=== PATIENT | male | born 1945 | race Caucasian/White ===

== ENCOUNTER → 2018-03-20 11:24 | Outpatient (CLI) | payer SELFPAY ==
--- NOTE | 2018-03-20 11:33 | US_ITS ---
STUDY: SCROTUM ULTRASOUND REASON FOR EXAM: Male, 72 years old. Pain/tenderness of the left testicle. TECHNIQUE: Ultrasound evaluation of the scrotum was performed with color Doppler and static erickson-scale imaging. COMPARISON: None. FINDINGS: RIGHT TESTICLE INTRATESTICULAR: There is a normal size of the right testicle. The right testicle measures 4 cm x 3.7 cm x 2.9 cm. There is a homogenous echotexture. There is normal arterial and normal venous vascularity. There is no demonstrated right testicular mass or cyst. EXTRATESTICULAR: The epididymis is normal in size. The epididymis head measures 0.9 cm x 2 cm x 1.3 cm. There is normal vascularity of the epididymis. There is a well-defined cystic structure within the epididymis, without internal echoes, consistent with an epididymal cyst. This measures 3.9 mm x 5.6 mm. There is no demonstrated hydrocele. There is no demonstrated varicocele. There is no demonstrated extratesticular mass or cyst. LEFT TESTICLE INTRATESTICULAR: There is a normal size of the left testicle. The left testicle measures 4.1 cm x 3.2 signed by 3.1 cm. There is a homogenous echotexture. There is normal arterial and normal venous vascularity. There is no demonstrated left testicular mass or cyst. EXTRATESTICULAR: The epididymis is normal in size. The epididymis head measures 1.2 cm x 1.3 cm x 0.9 cm. There is increased (hyperemic) vascularity of the epididymis. There is no demonstrated epididymal cystic structure. There is a small hydrocele. There is no demonstrated varicocele. There is no demonstrated extratesticular mass or cyst. US/Testicular with Arterial Flow IMPRESSION: Findings suggestive of left epididymitis. Small hydrocele. Electronically Signed: Riaz Dean MD at 14:56 EDT Tel [phone], Service support ,
== END ==
PROVIDERS: Family Provider Family Medicine; PCP Family Medicine; Referring Provider Nurse Practitioner Adult Health; Visit Provider Nurse Practitioner Adult Health
DX: N43.3 Hydrocele, unspecified (principal)
CPT/HCPCS: 76870; 87086; 87088; 87186; 93976

== ENCOUNTER → 2018-05-07 09:12 | Outpatient (CLI) | payer SELFPAY ==
--- NOTE | 2018-05-07 09:16 | CT_ITS ---
STUDY: CT ABDOMEN AND PELVIS WITHOUT CONTRAST REASON FOR EXAM: Male, 72 years old. 2 week history of left flank pain. RADIATION DOSAGE (If Supplied By Facility): CTDIvol = ( 23.43 ) mGy, DLP = ( 1264.55 ) mGycm TECHNIQUE: Transaxial images were obtained from the dome of the diaphragm to the symphysis pubis without oral contrast, and without intravenous contrast. Sagittal and coronal images were reconstructed. Individualized dose optimization techniques were used for this CT. COMPARISON: None. FINDINGS: Increased linear markings at the right lung base with areas of confluence suggestive of scarring and possible superimposed atelectasis. Calcified granulomas in both lower lobes more prominent on the right side. Dual-chamber pacemaker is seen. Normal liver. There are surgical clips in the gallbladder fossa consistent with a prior cholecystectomy. There are multiple benign calcified granulomata of the spleen. Normal pancreas. Normal bilateral adrenal glands. There is a 1.7 cm x 1.7 cm rounded hypodensity along the lateral posterior aspect of the right kidney suggestive of a small cyst. Normal left kidney. Normal visualized stomach. Normal small intestine. Normal colon. The appendix is visualized and appears normal. There is scattered atherosclerotic calcification of the abdominal aorta, without a demonstrated aneurysm. Normal inferior vena cava. There is borderline retroperitoneal lymphadenopathy with enlarged nodes no greater than 10mm in the short axis diameter. Bladder wall thickening along the anterior superior aspect. There is enlargement of the prostate gland. It measures 5.9 cm x 4.9 cm. This causes indentation at the bladder base. Benign appearing bilateral inguinal lymph nodes. Normal abdominal wall. There are diffuse degenerative changes of the visualized lumbar spine. Prior screw and mo fixation at the L4 S1 level. Grade 2 anterior listhesis of L5 on S1. CT/Abdomen/Pelvis without Cont IMPRESSION: Prostate enlargement with indentation of the bladder base. Bladder wall thickening along the superior anterior aspect. Electronically Signed: Riaz eDan MD at 9:57 EST Tel [phone], Service support ,
== END ==
PROVIDERS: Family Provider Family Medicine; PCP Family Medicine; Visit Provider Urology
DX: N20.0 Calculus of kidney (principal); N40.0 Benign prostatic hyperplasia without lower urinary tract symptoms
CPT/HCPCS: 74176

== ENCOUNTER 2018-06-05 15:32 | Inpatient (IN) | payer OTHER, SELFPAY ==
[2018-06-05] VITALS (11 sets, daily range): BP systolic 116–126; BP diastolic 69–82; PULSE 70–72; RESP 16–18; TEMP 36.7–36.9; O2SAT 92–98; BMI 36.6
--- NOTE | 2018-06-05 15:47 | EKG12_ITS ---
Test Reason : SOB Blood Pressure : / mmHG Vent. Rate : 070 BPM Atrial Rate : 468 BPM P-R Int : 226 ms QRS Dur : 198 ms QT Int : 492 ms P-R-T Axes : 000 -66 101 degrees QTc Int : 531 ms AV dual-paced rhythm with prolonged AV conduction Abnormal ECG Confirmed by WEST PLASCENCIA, NORMAN ([id number]), associate entertainment editor DORIAN HENDRICKSON ([id number]) on 06/11/2018 9:48:57 AM Referred By: ARCHIE Confirmed By:NORMAN DODSON MD
--- NOTE | 2018-06-05 15:47 | RAD_ITS ---
STUDY: X-RAY CHEST REASON FOR EXAM: Male, 72 years old. Shortness of breath TECHNIQUE: Frontal and lateral views of the chest were obtained. COMPARISON: None. FINDINGS: Lines and tubes: None. Lungs: Underaerated with increased AP diameter on the lateral view. Minimal increased markings in both lung bases. Pleura: No demonstrated abnormality. Mediastinum/nikki: Unremarkable. Cardiovascular: Mildly enlarged cardiac silhouette. A pacing device is present in the left chest with leads terminating in the expected right atrium and right ventricle. Central vascularity unremarkable. Atherosclerotic calcifications in the thoracic aorta. Soft tissues: Unremarkable. Bones: Degenerative changes in spine and shoulders. Upper abdomen: No demonstrated abnormality. RAD/Chest PA and Lateral IMPRESSION: There is mild enlargement of the cardiac silhouette without pulmonary edema or pleural effusion. Minimal bibasilar atelectasis. Electronically Signed: Linda Schroeder MD at 17:20 EST Tel Direct: [phone], Service support ,
--- NOTE | 2018-06-05 16:36 | ED.VISSUMM ---
- ER Visit Summary Date of Service: 06/05/18 Chief Complaint: [Shortness of breath] History of Present Illness: The patient is a 72 M presents to the emergency department with 2-day history of increased shortness of breath. Patient was seen by his urologist today for an unrelated issue and was noted to be quite dyspneic so sent to the emergency department for further evaluation. Patient has had a slight cough but no real fever. He denies any chest pain. Patient has noticed some increased leg swelling. Patient not sure if he is gained weight but he does not weigh himself. Patient complains of orthopnea and exertional dyspnea. He denies recent travel or surgery. Patient does have a history of hypertension and CHF. [] Physical Examination: [HEENT-PERRLA, EOMI. Cranial nerves II through XII grossly intact. TMs clear. Mucous membranes moist. No adenopathy. Cardiovascular-regular rate and rhythm without murmur or ectopy Lungs-good aeration bilaterally. Patient has rales in both bases. No accessory muscle use or retractions. Patient is noted to have some mild JVD. Abdomen-normoactive bowel sounds, soft, nontender, no rebound or rigidity, no peritoneal signs. Extremities-intact ?4, normal range of motion, normal pulses, atraumatic. Patient has +1 edema both lower extremities.] Test Results: [EKG obtained on arrival showed a paced rhythm with a ventricular rate of 70 bpm. CBC with differential showed a white count of 7.1, hemoglobin 12.9, hematocrit 42, platelets 169. Chemistries unremarkable. BUN was 25 and creatinine 1.35. Troponin was elevated 0.144. No old troponins available for comparison. D-dimer was 0.52 which is normal when adjusted for age. Chest x-ray showed cardiomegaly otherwise nothing acute.] Emergency Department Course and Treatment: [Admit for further workup and evaluation. Patient was given aspirin.] Treatment Plan: [Admit] Disposition: [Admit] Impression: [Dyspnea Non-ST elevation NM] This note was generated with [employer] dictation software. It may contain incorrect words, spelling, and punctuation that were not noted in review of the chart prior to signing ED Disposition - Plan for ED Patient: Chief Complaint: Shortness of Breath Referrals: Ayo Burns [Primary Care Provider] -
[2018-06-05 16:42] LABS: Absolute Neutrophil Count 4.3 X10^3/uL (2.0-7.7); Basophil# 0.02 X10^3/uL; Basophil% 0.3 % (0-1); Eosinophil# 0.17 X10^3/uL; Eosinophils% 2.4 % (0-5); Hematocrit 41.9 % (40-54); Hemoglobin 12.9 g/dl (13.0-16.5); Lymphocyte % 24.1 % (19-41); Mean Corp Hgb Conc 30.8 g/gl (32-36); Mean Corpuscular Hgb 26.8 pg (27.0-32.0); Mean Corpuscular Volume 87.1 fL (80-94); Mean Platelet Vol. 10.8 fl (6.2-12.0); Monocyte# 0.85 X10^3/uL; Monocyte% 12.1 % (0-10); Neutrophil # 4.29 X10^3/uL (2.7-7.7); Neutrophil % 60.8 % (47-70); Platelet Count 169 K/mm3 (150-450); RBC Distribution Width CV 18.5 % (11.6-14.6); RBC Distribution Width SD 59.4 fl (35.1-43.9); Red Blood Count 4.81 M/mm3 (4.6-6.2); White Blood Count 7.1 K/mm3 (4.4-11.0)
[2018-06-05 16:44] LABS: POSITIVE COUNT NO; POSITIVE DIFFERENTIAL NO; POSITIVE MORPHOLOGY NO
[2018-06-05 16:59] LABS: Anion Gap 7 (5-15); BUN 25 mg/dL (7-18); BUN/Creat Ratio 18.5 RATIO (10-20); Calcium,Total 8.8 mg/dL (8.5-10.1); Chloride 103 mmol/L (98-107); Creatinine, Serum 1.35 mg/dL (0.70-1.30); EST Glomerular Filtration Rate 55 mL/min (>60); Est Glom Filt Rate - Afr Amer 67 mL/min (>60); Estimated Creatinine Clearance 55.88 ml/min; Glucose 96 mg/dL (74-106); Potassium 4.2 mmol/L (3.5-5.1); Sodium Level 139 mmol/L (136-145)
[2018-06-05 17:04] LABS: D-Dimer Quantitative (DVT/PE) 0.52 FEU/ug/m (0.27-0.49)
[2018-06-05 17:12] LABS: BNP,B-Type NATRIURETIC PEPTIDE 256.2 pg/mL (0-100)
[2018-06-05] MEDS: Aspirin 81 MG TAB.CHEW 324 MG PO (18:02)
--- NOTE | 2018-06-05 19:12 | PCM.HP.STD ---
Problem List (1) Chest pain Status: Acute (2) Elevated troponin Status: Acute History of Present Illness Date of Admission: 06/05/18 Chief Complaint: chest pain. The patient is a 72 year old M presents with increasing shortness of breath over the past several days but also has been having chest pain. Patient presented to the emergency room for evaluation. In the emergency room, he had a d-dimer that was 0.52, which is normal for his age, a BNP of 256, troponin of 0.144. Patient denies having symptoms similar to this before denies any history of coronary artery disease. Does have a history of atrial fibrillation which he has a pacemaker. He was following up with a milk pasteurizer in [place] but who moved away and patient did not get reestablished though he did see a milk pasteurizer over the summer for what sounds like clearance for his back surgery. Patient did undergo an extensive lumbar and sacral fusion in December which she tolerated well. Patient's big complaint is also involved back pain, which is been going on for several months since his surgery and denies any new radicular symptoms nor any bowel or bladder incontinence. Also complains of groin pain. This been going on for several months and was diagnosed with epididymitis in February and has seen Dr. Tomlinson, of urology. This too is unchanged. [] Past Medical History Medical History: Medical History (Last Updated 06/05/18 @ 19:16 by Krishna Mckenna DO) Afib I48.91 BPH (benign prostatic hyperplasia) N40.0 Fusion of lumbar spine M43.26 Allergies No Known Allergies Allergy (Verified 06/05/18 15:34) Home Medications: Ambulatory Orders Medication Instructions Recorded Acetaminophen [Tylenol] 650 mg PO Q4H PRN PRN 06/05/18 Amiodarone HCl 400 mg PO DAILY 06/05/18 Aspirin E.C. [Ecotrin] 81 mg PO DAILY@0800 06/05/18 Atorvastatin Calcium [Lipitor] 10 mg PO QHS 06/05/18 Co Q10 200 [Co Q-10] 100 mg PO BID 06/05/18 Digoxin 125 mcg PO DAILY 06/05/18 Furosemide [Lasix] 20 mg PO DAILY 06/05/18 Metoprolol Tartrate 50 mg PO BID 06/05/18 [place]-3 Fatty Acids [[place]-3] 1,000 mg PO BID 06/05/18 Pantoprazole Sodium [Protonix] 40 mg PO BID 06/05/18 Spironolactone 12.5 mg PO DAILY 06/05/18 Tamsulosin HCl 0.4 mg PO DAILY 06/05/18 Warfarin Sodium 2 mg PO MOTUFRSA 06/05/18 Smoking Status: Former smoker Tobacco Use: Non-smoker Alcohol: None Drugs: None - *Family History Maternal History Items: - - no CAD Review of Systems Constitutional: Denies: Anorexia, Chills, Fever, Night Sweats Eyes: Denies: Blurred vision, Double vision HEENT: Denies: Head Aches, Sinus Congestion, Sinus Drainage Cardiovascular: Reports: Chest Pain. Denies: Edema Respiratory: Reports: Shortness of Breath. Denies: Cough Gastrointestinal: Denies: Abdominal Pain, Nausea, Vomiting Genitourinary: Denies: Dysuria, Frequency, Incontinence Musculoskeletal: Denies: Joint Pain, Joint Tenderness Skin: Denies: Dryness, Jaundice Neurological: Denies: Blurred vision, Double vision, Focal weakness, Numbness, Tingling Psychiatric: Denies: Anxiety, Depression Endocrine: Denies: Change in Body Habitus, Heat/ Cold Intolerance Hematologic/ Lymphatic: Denies: Easy Bruising, Easy Bleeding, Hx of blood clot Comment: A 10 point review of systems were negative except as mentioned in the history of present illness and the other review of systems. VTE Information - Inpt Only VTE Present on Admission: No VTE Mechan Device Prophylaxis: None VTE Pharm Prophylaxis ordered?: Yes Patient Problems: Active and Suspected Problems Chest pain (Acute) Elevated troponin (Acute) - Physical Exam General: Alert, Cooperative, No apparent distress HEENT: Atraumatic, Normocephalic Oral: Moist Mucosa, No Gingival or Mucosal Lesions/ Ulcerations Neck: No Nodes, Thyroid Normal Size and Texture Lungs: Clear to auscultation, No rhonchi, No wheeze, Diminished Cardiovascular: Regular rate, Regular Rhythm, Normal S1, Normal S2, No murmurs Abdomen: Bowel Sounds Present, Non Tender, Non-Distended, No Hepato-splenomegaly, Passing Flatus, Obese Extremities: No edema, No Calf Tenderness Skin: No rashes, No breakdown Musculoskeletal: No Tenderness to Palpation of Joints or Extremities, No Muscle Wasting Neurological: Motor Exam 5/5 strength throughout, Sensory exam intact to light touch and pain Psych/Mental Status: Normal Affect, Anxious Vital Signs Temp Pulse Resp BP Pulse Ox 36.9 C 70 16 123/76 H 98 06/05/18 17:12 06/05/18 18:05 06/05/18 18:05 06/05/18 18:05 06/05/18 18:05 Oxygen Flow Rate (L/min) 2 Oxygen Delivery Method Nasal Cannula Weight: 122.4 kg Body Mass Index (BMI) 36.6 Laboratory Tests Past 24 Hrs 06/05/18 06/05/18 06/05/18 16:27 16:27 16:27 WBC 7.1 RBC 4.81 Hgb 12.9 L Hct 41.9 MCV 87.1 MCH 26.8 L MCHC 30.8 L RDW 18.5 H RDW Differential 59.4 H Plt Count 169 MPV 10.8 Immature Gran % (Auto) 0.300 Neut % (Auto) 60.8 Lymph % (Auto) 24.1 [place] % (Auto) 12.1 H Eos % (Auto) 2.4 Baso % (Auto) 0.3 Absolute Neuts (auto) 4.3 Absolute Lymphs (auto) 1.70 Total Counted Not Reportable D-Dimer Quant (PE/DVT) Sodium 139 Potassium 4.2 Chloride 103 Carbon Dioxide 29.0 Anion Gap 7 BUN 25 H Creatinine 1.35 H Estim Creat Clear Calc 55.88 Est GFR (MDRD) Af Amer 67 Est GFR (MDRD) Non-Af 55 L BUN/Creatinine Ratio 18.5 Glucose 96 Calcium 8.8 Troponin I 0.144 H B-Natriuretic Peptide 256.2 H 06/05/18 16:27 WBC RBC Hgb Hct MCV MCH MCHC RDW RDW Differential Plt Count MPV Immature Gran % (Auto) Neut % (Auto) Lymph % (Auto) [place] % (Auto) Eos % (Auto) Baso % (Auto) Absolute Neuts (auto) Absolute Lymphs (auto) Total Counted D-Dimer Quant (PE/DVT) 0.52 H* Sodium Potassium Chloride Carbon Dioxide Anion Gap BUN Creatinine Estim Creat Clear Calc Est GFR (MDRD) Af Amer Est GFR (MDRD) Non-Af BUN/Creatinine Ratio Glucose Calcium Troponin I B-Natriuretic Peptide EKG reviewed and showed a paced rhythm. Chest x-ray reviewed and shows no acute process, cardiomegaly. No definitive pulmonary edema nor effusions. No infiltrate. Assessment/Plan All Active Problems Chest pain (Acute) Elevated troponin (Acute) 1. Chest pain We will cycle troponins Consult cardiology Check an echocardiogram Patient already on aspirin Check a a.m. lipid panel 2. Elevated troponin As above We will check an INR to see if patient is adequately anticoagulated, if not, patient may need benefit from therapeutic Lovenox. 3. Atrial fibrillation Paced and controlled Continue with amiodarone, digoxin, metoprolol and warfarin. Check records from his former milk pasteurizer in [place]'s office 4. DVT prophylaxis: Patient will be anticoagulated, either with therapeutic INR with the addition of therapeutic Lovenox. 5. Left groin pain Chronic Has been evaluated by urology Was diagnosed with epididymitis in February and was treated with antibiotics on several occasions We will check a urinalysis to see if any urinary tract infection is evident Patient and his family instructed that he will need follow-up with urology as outpatient as this is a chronic problem there is no acute need to bring in urology at this time. 6. back pain Chronic Is been going on since his surgery back in December He has no radicular signs, no bowel or bladder incontinence Patient will need to follow-up with his spine surgeon, Dr. Duran, as outpatient The patient does develop acute radicular symptoms or any bowel or bladder incontinence, then acute imaging would be necessary Did discuss with the patient's and another family member at bedside. seemed upset by the fact that would not be consulting urology while he was here and I did inform them that we do not have spine surgery available here and I did inform them that there is no need for imaging of his back at this time. Informed she her as well as the patient that the primary reason for him to be admitted is to evaluate his heart. Code Visit Inpatient E&M: 58383 Init Hosp L3
--- NOTE | 2018-06-05 19:17 | HP.PCM_ITS ---
Problem List (1) Chest pain Status: Acute (2) Elevated troponin Status: Acute History of Present Illness Date of Admission: 06/05/18 Chief Complaint: chest pain. The patient is a 72 year old M presents with increasing shortness of breath over the past several days but also has been having chest pain. Patient presented to the emergency room for evaluation. In the emergency room, he had a d-dimer that was 0.52, which is normal for his age, a BNP of 256, troponin of 0.144. Patient denies having symptoms similar to this before denies any history of coronary artery disease. Does have a history of atrial fibrillation which he has a pacemaker. He was following up with a forest fire prevention manager in [place] but who moved away and patient did not get reestablished though he did see a forest fire prevention manager over the summer for what sounds like clearance for his back surgery. Patient did undergo an extensive lumbar and sacral fusion in December which she tolerated well. Patient's big complaint is also involved back pain, which is been going on for several months since his surgery and denies any new radicular symptoms nor any bowel or bladder incontinence. Also complains of groin pain. This been going on for several months and was diagnosed with epididymitis in February and has seen Dr. Tomlinson, of urology. This too is unchanged. [] Past Medical History Medical History: Medical History (Last Updated 06/05/18 @ 19:16 by Krishna Mckenna DO) Afib I48.91 BPH (benign prostatic hyperplasia) N40.0 Fusion of lumbar spine M43.26 Allergies No Known Allergies Allergy (Verified 06/05/18 15:34) Home Medications: Ambulatory Orders Medication Instructions Recorded Acetaminophen [Tylenol] 650 mg PO Q4H PRN PRN 06/05/18 Amiodarone HCl 400 mg PO DAILY 06/05/18 Aspirin E.C. [Ecotrin] 81 mg PO DAILY@0800 06/05/18 Atorvastatin Calcium [Lipitor] 10 mg PO QHS 06/05/18 Co Q10 200 [Co Q-10] 100 mg PO BID 06/05/18 Digoxin 125 mcg PO DAILY 06/05/18 Furosemide [Lasix] 20 mg PO DAILY 06/05/18 Metoprolol Tartrate 50 mg PO BID 06/05/18 [place]-3 Fatty Acids [[place]-3] 1,000 mg PO BID 06/05/18 Pantoprazole Sodium [Protonix] 40 mg PO BID 06/05/18 Spironolactone 12.5 mg PO DAILY 06/05/18 Tamsulosin HCl 0.4 mg PO DAILY 06/05/18 Warfarin Sodium 2 mg PO MOTUFRSA 06/05/18 Smoking Status: Former smoker Tobacco Use: Non-smoker Alcohol: None Drugs: None - *Family History Maternal History Items: - - no CAD Review of Systems Constitutional: Denies: Anorexia, Chills, Fever, Night Sweats Eyes: Denies: Blurred vision, Double vision HEENT: Denies: Head Aches, Sinus Congestion, Sinus Drainage Cardiovascular: Reports: Chest Pain. Denies: Edema Respiratory: Reports: Shortness of Breath. Denies: Cough Gastrointestinal: Denies: Abdominal Pain, Nausea, Vomiting Genitourinary: Denies: Dysuria, Frequency, Incontinence Musculoskeletal: Denies: Joint Pain, Joint Tenderness Skin: Denies: Dryness, Jaundice Neurological: Denies: Blurred vision, Double vision, Focal weakness, Numbness, Tingling Psychiatric: Denies: Anxiety, Depression Endocrine: Denies: Change in Body Habitus, Heat/ Cold Intolerance Hematologic/ Lymphatic: Denies: Easy Bruising, Easy Bleeding, Hx of blood clot Comment: A 10 point review of systems were negative except as mentioned in the history of present illness and the other review of systems. VTE Information - Inpt Only VTE Present on Admission: No VTE Mechan Device Prophylaxis: None VTE Pharm Prophylaxis ordered?: Yes Patient Problems: Active and Suspected Problems Chest pain (Acute) Elevated troponin (Acute) - Physical Exam General: Alert, Cooperative, No apparent distress HEENT: Atraumatic, Normocephalic Oral: Moist Mucosa, No Gingival or Mucosal Lesions/ Ulcerations Neck: No Nodes, Thyroid Normal Size and Texture Lungs: Clear to auscultation, No rhonchi, No wheeze, Diminished Cardiovascular: Regular rate, Regular Rhythm, Normal S1, Normal S2, No murmurs Abdomen: Bowel Sounds Present, Non Tender, Non-Distended, No Hepato- splenomegaly, Passing Flatus, Obese Extremities: No edema, No Calf Tenderness Skin: No rashes, No breakdown Musculoskeletal: No Tenderness to Palpation of Joints or Extremities, No Muscle Wasting Neurological: Motor Exam 5/5 strength throughout, Sensory exam intact to light touch and pain Psych/Mental Status: Normal Affect, Anxious Vital Signs Temp Pulse Resp BP Pulse Ox 36.9 C 70 16 123/76 H 98 06/05/18 17:12 06/05/18 18:05 06/05/18 18:05 06/05/18 18:05 06/05/18 18:05 Oxygen Flow Rate (L/min) 2 Oxygen Delivery Method Nasal Cannula Weight: 122.4 kg Body Mass Index (BMI) 36.6 Laboratory Tests Past 24 Hrs 06/05/18 06/05/18 06/05/18 16:27 16:27 16:27 WBC 7.1 RBC 4.81 Hgb 12.9 L Hct 41.9 MCV 87.1 MCH 26.8 L MCHC 30.8 L RDW 18.5 H RDW Differential 59.4 H Plt Count 169 MPV 10.8 Immature Gran % (Auto) 0.300 Neut % (Auto) 60.8 Lymph % (Auto) 24.1 [place] % (Auto) 12.1 H Eos % (Auto) 2.4 Baso % (Auto) 0.3 Absolute Neuts (auto) 4.3 Absolute Lymphs (auto) 1.70 Total Counted Not Reportable D-Dimer Quant (PE/DVT) Sodium 139 Potassium 4.2 Chloride 103 Carbon Dioxide 29.0 Anion Gap 7 BUN 25 H Creatinine 1.35 H Estim Creat Clear Calc 55.88 Est GFR (MDRD) Af Amer 67 Est GFR (MDRD) Non-Af 55 L BUN/Creatinine Ratio 18.5 Glucose 96 Calcium 8.8 Troponin I 0.144 H B-Natriuretic Peptide 256.2 H 06/05/18 16:27 WBC RBC Hgb Hct MCV MCH MCHC RDW RDW Differential Plt Count MPV Immature Gran % (Auto) Neut % (Auto) Lymph % (Auto) [place] % (Auto) Eos % (Auto) Baso % (Auto) Absolute Neuts (auto) Absolute Lymphs (auto) Total Counted D-Dimer Quant (PE/DVT) 0.52 H* Sodium Potassium Chloride Carbon Dioxide Anion Gap BUN Creatinine Estim Creat Clear Calc Est GFR (MDRD) Af Amer Est GFR (MDRD) Non-Af BUN/Creatinine Ratio Glucose Calcium Troponin I B-Natriuretic Peptide EKG reviewed and showed a paced rhythm. Chest x-ray reviewed and shows no acute process, cardiomegaly. No definitive pulmonary edema nor effusions. No infiltrate. Assessment/Plan All Active Problems Chest pain (Acute) Elevated troponin (Acute) 1. Chest pain We will cycle troponins Consult cardiology Check an echocardiogram Patient already on aspirin Check a a.m. lipid panel 2. Elevated troponin As above We will check an INR to see if patient is adequately anticoagulated, if not, patient may need benefit from therapeutic Lovenox. 3. Atrial fibrillation Paced and controlled Continue with amiodarone, digoxin, metoprolol and warfarin. Check records from his former forest fire prevention manager in [place]'s office 4. DVT prophylaxis: Patient will be anticoagulated, either with therapeutic INR with the addition of therapeutic Lovenox. 5. Left groin pain Chronic Has been evaluated by urology Was diagnosed with epididymitis in February and was treated with antibiotics on several occasions We will check a urinalysis to see if any urinary tract infection is evident Patient and his family instructed that he will need follow-up with urology as outpatient as this is a chronic problem there is no acute need to bring in urology at this time. 6. back pain Chronic Is been going on since his surgery back in December He has no radicular signs, no bowel or bladder incontinence Patient will need to follow-up with his spine surgeon, Dr. Duran, as outpatient The patient does develop acute radicular symptoms or any bowel or bladder incontinence, then acute imaging would be necessary Did discuss with the patient's and another family member at bedside. seemed upset by the fact that would not be consulting urology while he was here and I did inform them that we do not have spine surgery available here and I did inform them that there is no need for imaging of his back at this time. Informed she her as well as the patient that the primary reason for him to be admitted is to evaluate his heart. Code Visit Inpatient E&M: 59978 Init Hosp L3
--- NOTE | 2018-06-05 19:21 | ECHOD_ITS ---
Reason For Study: CHEST PAIN Procedure This was a 2D Doppler, Color Flow transthoracic echocardiogram. The study was technically difficult. Due to body habitus. Exam performed portable in patient room. Left Ventricle Moderately dilated left ventricle. Sigmoid septum. Moderate global left ventricular systolic dysfunction. The estimated ejection fraction is 35 %. Right Ventricle Mildly dilated right ventricle. ICD or pacer leads identified within the right ventricle. Mild global right ventricular systolic dysfunction. Atria The left atrium is moderately enlarged. Normal right atrium. ICD or pacer leads identified within the right atrium. No doppler evidence for ASD. Mitral Valve There is mild mitral annular calcification. Mild diffuse mitral valve thickening. The mitral valve chordae are thickened and/or calcified. Mild-Moderate (1-2+) mitral valve insufficiency. Tricuspid Valve Normal tricuspid valve. Mild tricuspid valve insufficiency. Right ventricular systolic pressure estimated to be 31 mmHg. Aortic Valve Trisinus/trileaflet aortic valve. Mild focal aortic valve thickening. Trivial eccentric aortic valve insufficiency. Pulmonic Valve The pulmonic valve is not well visualized. Great Vessels Normal sized aortic root. Pericardium/Pleural No pericardial effusion. MMode/2D Measurements & Calculations LVIDd: 6.4 cm IVSd: 1.9 cm Ao root diam: 3.6 cm LVIDs: 5.6 cm LVPWd: 1.2 cm RVDd: 4.4 cm FS: 12.4 % LAV(MOD-bp): 116.2 ml LA A4 area: 27.7 cm2 LA dimension(2D): 4.9 cm LAV(MOD-bp) Indexed: 48.1 ml/m2 LAV(MOD-sp2): 114.1 ml LAV(MOD-sp4): 119.7 ml RA A4 area: 17.8 cm2 Doppler Measurements & Calculations MV E max nick: 72.4 cm/sec Lat Peak E' Nick: 1.8 cm/sec Med Peak E' Nick: 4.0 cm/sec MV A max nick: 38.8 cm/sec E/E' lat: 40.0 E/E' med: 17.9 MV E/A: 1.9 Ao V2 max: 113.8 cm/sec LV V1 max: 83.6 cm/sec MR max nick: 369.5 cm/sec Ao max P.2 mmHg LV V1 max P.8 mmHg MR max P.6 mmHg PA V2 max: 91.9 cm/sec TR max nick: 236.9 cm/sec TR max P.5 mmHg Interpretation Summary The study was technically difficult. Moderately dilated left ventricle. Moderate global left ventricular systolic dysfunction. The estimated ejection fraction is 35 %. Sigmoid septum. Mildly dilated right ventricle. Mild global right ventricular systolic dysfunction. The left atrium is moderately enlarged. There is mild mitral annular calcification. Mild diffuse mitral valve thickening. The mitral valve chordae are thickened and/or calcified. Mild-Moderate (1-2+) mitral valve insufficiency. Mild tricuspid valve insufficiency. Mild focal aortic valve thickening. Trivial eccentric aortic valve insufficiency. Right ventricular systolic pressure estimated to be 31 mmHg. Transmitral diastolic flow velocities suggest diastolic dysfunction (pseudonormal pattern). ICD or pacer leads identified within the right atrium ICD or pacer leads identified within the right ventricle. Ordering Physician: Krishna Mckenna Referring Physician: Ayo Burns Performed By: Tatum Perdomo RDCS, RVT
[2018-06-05] MEDS: Metoprolol Tartrate 50 MG Tablet PO (21:14)
[2018-06-05] MEDS: Omega-3 Acid Ethyl Esters 1 GM Capsule PO (21:14)
[2018-06-05] MEDS: Atorvastatin Calcium 10 MG Tablet PO (21:14)
[2018-06-05] MEDS: Acetaminophen 325 MG Tablet 650 MG PO (21:14)
[2018-06-05] MEDS: Pantoprazole Sodium 40 MG Tablet PO (21:14)
--- NOTE | 2018-06-05 21:44 | CON.PCM_ITS ---
Problem List (1) Chest pain Status: Acute (2) Shortness of breath Status: Acute (3) Elevated troponin Status: Acute (4) Cardiomyopathy Status: Chronic (5) CHF (congestive heart failure) Status: Chronic Qualifiers: Heart failure type: systolic Heart failure chronicity: chronic Qualified Code(s): I50.22 - Chronic systolic (congestive) heart failure (6) Atrial fibrillation Status: Chronic (7) ICD (implantable cardioverter-defibrillator) in place Status: Chronic (8) HTN (hypertension) Status: Chronic (9) HLD (hyperlipidemia) Status: Chronic Reason for Consult Date of Consultation: 06/05/18 History of Present Illness: The patient is a 72 year old white male who states he has a past medical history of underlying hyperlipidemia, hypertension, atrial fibrillation, a non-CAD related cardiomyopathy (diagnosed by cardiac catheterization x2), CHF, and an ICD who is referred for concerns of chest discomfort, shortness of breath, and indeterminate troponin I levels. The patient states he is previously followed with cardiology in [place], [place]. He has had his noninvasive and invasive studies/procedures performed at [facility] in [facility]. To the best of his knowledge he has been told he has the aforementioned diagnoses. He has been treated medically. He states his last outpatient cardiovascular visit was in November 2017 for preoperative evaluation. He did not require additional cardiovascular testing at that time. He states his ICD was reported as functioning appropriately. He has had it checked intermittently remotely. He notes recently he has had sharp chest discomfort and then a uncomfortable chest discomfort. He has felt more short of breath and dyspneic. He has had symptoms appearing compatible with orthopnea. He has long-standing lower extremity peripheral pitting edema for which she wears support stockings. He states this is been somewhat more prominent recently. He has had no near syncope or syncope. He states his device is discharged in the past but not within the last 2 years. He presented to the emergency department for evaluation. He was found to have indeterminate troponin I levels. His ECG demonstrated an underlying electronic ventricular paced rhythm. A chest x-ray was performed. There were no acute changes reported. He states he has increased his home diuretic therapy himself. He is actually felt better with increased diuresis. [] Past Medical History Allergies/Adverse Reactions: Allergies amoxicillin Allergy (Verified 06/05/18 19:21) Swelling tramadol Allergy (Verified 06/05/18 19:21) Swelling Home Medications: Ambulatory Orders Medication Instructions Recorded Acetaminophen [Tylenol] 650 mg PO Q4H PRN PRN 06/05/18 Amiodarone HCl 400 mg PO DAILY 06/05/18 Aspirin E.C. [Ecotrin] 81 mg PO DAILY@0800 06/05/18 Atorvastatin Calcium [Lipitor] 10 mg PO QHS 06/05/18 Co Q10 200 [Co Q-10] 100 mg PO BID 06/05/18 Digoxin 125 mcg PO DAILY 06/05/18 Furosemide [Lasix] 20 mg PO DAILY 06/05/18 Metoprolol Tartrate 50 mg PO BID 06/05/18 Dawson-3 Fatty Acids [Dawson-3] 1,000 mg PO BID 06/05/18 Pantoprazole Sodium [Protonix] 40 mg PO BID 06/05/18 Spironolactone 12.5 mg PO DAILY 06/05/18 Tamsulosin HCl 0.4 mg PO DAILY 06/05/18 Warfarin Sodium 2 mg PO MOTUFRSA 06/05/18 Past Medical History (Chronic Problems): Chronic Problems (Last Updated 06/05/18 @ 19:16 by Krishna Mckenna DO) Cardiomyopathy (Chronic) Atrial fibrillation (Chronic) ICD (implantable cardioverter-defibrillator) in place (Chronic) HTN (hypertension) (Chronic) HLD (hyperlipidemia) (Chronic) CHF (congestive heart failure) (Chronic) - *Family History Maternal History Items: - - no CAD Smoking Status: Former smoker Tobacco Use: Non-smoker Alcohol: None Drugs: None Review of Systems - Review of Systems General: Denies: Fever, Night Sweats, Fatigue Cardiovascular: Reports: Chest Discomfort, Shortness of Breath, Orthopnea, Peripheral Edema. Denies: PND, Palpitations, Lightheadedness, Dizziness, Near Syncope, Syncope Respiratory: Reports: Shortness of Breath. Denies: Cough, Sputum Production, Hemoptysis Gastrointestinal: Denies: Hematemesis, Hematochezia, Melena Genitourinary: Denies: Dysuria, Hematuria Skin: Denies: Rash Subjectve: This is a pleasant 72-year-old white male appears resting comfortably at the moment in no acute distress. Objective: Vital Signs Temp Pulse Resp BP Pulse Ox 98.1 F 70 16 117/69 98 06/05/18 21:10 06/05/18 21:14 06/05/18 21:10 06/05/18 21:10 06/05/18 21:10 Oxygen Flow Rate (L/min) 2 Oxygen Delivery Method Nasal Cannula Weight: 269 lb 13.533 oz Body Mass Index (BMI) 36.6 General: Awake, Alert, Oriented x 3, Cooperative, No Acute Distress, Obese HEENT: Atraumatic, Normocephalic, PERRL, EOMI, Sclera Non Icteric Oral: Moist Mucosa Neck: Supple, Good ROM, No JVD Lungs: Diminished Bernard Bases Cardiovascular: Regular Rhythm, Normal S1, Normal S2 Vascular: No Carotid Bruits Abdomen: Bowel Sounds Present, Soft, Non Tender, Obese Extremities: Mild RLE Edema, Mild LLE Edema, - - Bilateral support stockings Neurological: No Focal Motor or Sensory Deficit Psych/Mental Status: Appropriate 06/05/18 16:27: WBC 7.1, RBC 4.81, Hgb 12.9 L, Hct 41.9, MCV 87.1, MCH 26.8 L, MCHC 30.8 L, RDW 18.5 H, RDW Differential 59.4 H, Plt Count 169, MPV 10.8, Immature Gran % (Auto) 0.300, Neut % (Auto) 60.8, Lymph % (Auto) 24.1, [place] % (Auto) 12.1 H, Eos % (Auto) 2.4, Baso % (Auto) 0.3, Absolute Neuts (auto) 4.3, Total Counted Not Reportable 06/05/18 16:27: Sodium 139, Potassium 4.2, Chloride 103, Carbon Dioxide 29.0, Anion Gap 7, BUN 25 H, Creatinine 1.35 H, Est GFR (MDRD) Af Amer 67, Est GFR (MDRD) Non-Af 55 L, BUN/Creatinine Ratio 18.5, Glucose 96, Calcium 8.8, Troponin I 0.144 H 06/05/18 16:27: B-Natriuretic Peptide 256.2 H 06/05/18 16:27: D-Dimer Quant (PE/DVT) 0.52 H* 06/05/18 19:50: Troponin I 0.150 H Rhythm: Electronic ventricular paced rhythm EKG: I Tronic ventricular paced rhythm CXR: As noted above Assessment/Plan 1. Chest pain/shortness of breath The patient presents with chest pain and shortness of breath. His chest pain is somewhat atypical based on its characteristics. He has shortness of breath which is somewhat chronic but potentially worse recently. He is being evaluated based upon his symptoms and his previous cardiovascular condition. He has been found to have indeterminate troponin I levels. He has an underlying electronic ventricular paced rhythm. At the present time he is being monitored. His laboratory studies are being fol lowed. An echocardiogram has been requested to evaluate his left ventricular wall motion and systolic function. Request is also been placed for cardiovascular medical records from [facility] in [place], [place]. In the interim he will continue appropriate medical therapy for his symptoms and aforementioned condition. This will include medications for his underlying non-CAD related current myopathy as well as the possibility of underlying CAD. 2. Indeterminate troponin I level Is unclear whether this is representing the development of CAD, which he states he has not had the past, and an acute coronary syndrome versus being a type II event from supply demand mismatch from his underlying non-CAD related cardiomyopathy. At the present time he is going to be followed. As noted above his enzymes will be followed. An echocardiogram will be reviewed. He will be treated medically. This will include agents such as aspirin, nitrates, beta-blockers, antiplatelet and anticoagulant agents as deemed appropriate. He may need reevaluation either noninvasively or invasively as his clinical course progresses. 3. Non-CAD related cardiomyopathy The patient reportedly has a non-CAD related current myopathy. He states he is undergone diagnostic cardiac catheterization x2 in the past which have demonstrated no underlying CAD. At the present time he needs to continue to be monitored. An echocardiogram will be requested to review his left ventricular wall motion and systolic function. A copy of his previous medical records will be requested for continuity of care. He will need to continue medical management as deemed appropriate. This may include agents such as beta blockers, diuretics, afterload reducing agents, etc. 4. Chronic systolic CHF The patient appears to have a history compatible with chronic systolic CHF. He may be having an element of acute on chronic symptoms at this time. He will continue medical management. This will also include diuretic therapy with furosemide. He will proceed with further evaluation as noted above. 5. Atrial fibrillation The patient has a history of atrial fibrillation. He states he has been treated medically. He has been on it appears rate control therapy and anti-arrhythmic therapy and anticoagulant therapy. He notes his anticoagulant therapy has recently been adjusted after undergoing urologic procedures. He was due to have his INR rechecked tomorrow. If the patient requires repeat invasive evaluation and his anticoagulant therapy will have to be interrupted to allow his INR to be within acceptable range for such an evaluation. 6. ICD The patient believes he has a [employer] ICD. He states it was placed because of his weak heart . This can be interrogated which may provide additional information regarding his underlying cardiovascular status. 7. Hyperlipidemia He will continue lipid-lowering therapy as deemed appropriate. 8. Hypertension His blood pressure can be monitored. His medications can be adjusted as needed. Comment: The patient's case has been discussed and reviewed with the patient. He is agreeable to the aforementioned evaluation care plan. This note was generated with [employer] dictation software. It may contain incorrect words, spelling, and punctuation that were not noted in checking the note before signing.
--- NOTE | 2018-06-05 22:20 | EKG12_ITS ---
Test Reason : CHEST PAIN Blood Pressure : / mmHG Vent. Rate : 070 BPM Atrial Rate : 060 BPM P-R Int : 226 ms QRS Dur : 198 ms QT Int : 490 ms P-R-T Axes : 000 -63 097 degrees QTc Int : 529 ms AV dual-paced rhythm with prolonged AV conduction Biventricular pacemaker detected Abnormal ECG When compared with ECG of 05-JUN-2018 21:36, MANUAL COMPARISON REQUIRED, DATA IS UNCONFIRMED Confirmed by WEST PLASCENCIA, NORMAN ([id number]), film editor DORIAN HENDRICKSON ([id number]) on 06/11/2018 10:26:27 AM Referred By: STEFFANIE Confirmed By:NORMAN DODSON MD
[2018-06-05] MEDS: Furosemide 20 MG/2 ML VIAL IV (22:52)
[2018-06-06] VITALS (16 sets, daily range): BP systolic 99–126; BP diastolic 61–77; PULSE 66–71; RESP 16–20; TEMP 36.6–36.8; O2SAT 96–97
[2018-06-06 06:15] LABS: International Normalized Ratio 1.9; Prothrombin Time (Protime)PT. 21.6 SECONDS (11.7-14.9)
[2018-06-06 07:04] LABS: Anion Gap 8 (5-15); BUN 22 mg/dL (7-18); BUN/Creat Ratio 15.6 RATIO (10-20); Calcium,Total 8.4 mg/dL (8.5-10.1); Chloride 104 mmol/L (98-107); Cholesterol 102 mg/dL (200); Creatinine, Serum 1.41 mg/dL (0.70-1.30); EST Glomerular Filtration Rate 53 mL/min (>60); Est Glom Filt Rate - Afr Amer 64 mL/min (>60); Estimated Creatinine Clearance 53.51 ml/min; Glucose 87 mg/dL (74-106); High Density Lipoprotein 42 mg/dL; Potassium 4.1 mmol/L (3.5-5.1); Sodium Level 143 mmol/L (136-145); Triglycerides 93 mg/dL; Very Low Density Lipoprotein 19 mg/dL (5-40)
[2018-06-06 07:14] LABS: Digoxin Level 1.32 ng/mL (0.80-2.00)
[2018-06-06] MEDS: Spironolactone 25 MG Tablet 12.5 MG PO (08:06)
[2018-06-06] MEDS: Aspirin E.C. 81 MG Tablet PO (08:06)
[2018-06-06] MEDS: Metoprolol Tartrate 50 MG Tablet PO ×2 (08:06→22:56)
[2018-06-06] MEDS: Amiodarone 200 MG Tablet PO ×2 (08:06→22:56)
[2018-06-06] MEDS: Pantoprazole Sodium 40 MG Tablet PO ×2 (08:06→22:56)
[2018-06-06] MEDS: Omega-3 Acid Ethyl Esters 1 GM Capsule PO ×2 (08:06→22:56)
[2018-06-06] MEDS: Magnesium Hydroxide 30 ML UDC PO (08:10)
[2018-06-06 08:18] LABS: Bacteria 0 SEEN /hpf (None Seen); Mucous, Urine 0 SEEN /hpf (<or=2+); Squamous Epithelial Cells - UA 0 SEEN /hpf (0-5); White Blood Cells 0 SEEN /hpf (0-5)
[2018-06-06 08:20] LABS: Color, Urine Yellow (Yellow); Glucose, Dipstick Normal (Normal); Ketone-Dipstick Negative (Negative); Leukocyte Esterase-Dipstick Negative /ul (Negative); Nitrite-Dipstick Negative (Negative); Occult Blood-Urine 10 /ul (Negative); Protein-Dipstick Negative (Negative); Specific Gravity, Urine 1.015 (1.002-1.030); Urine Bilirubin Dipstick Negative (Negative); Urine Clarity Clear (Clear); Urine Urobilinogen Normal (Normal)
[2018-06-06 08:27] LABS: Red Blood Cells-Urine 0-5 SEEN /hpf (0-5)
--- NOTE | 2018-06-06 09:44 | PCM.PN.HOSP ---
Patient Problems: Active and Suspected Problems (Last Updated 06/05/18 @ 19:16 by Krishna Mckenna DO) Chest pain (Acute) Elevated troponin (Acute) Shortness of breath (Acute) Subjective: Patient seen and examined. She was admitted with a complaint of chest pain and worsening shortness of breath the past few days. She had gone to see his urologist for epididymitis and complained of the above symptoms and so was referred to the ED. She is been managed for chest pain to rule out ACS. Patient denies any chest pain this morning. He denies any shortness of breath, palpitations, abdominal pain, diarrhea vomiting. Review of systems otherwise negative. Labs and vitals reviewed.Cardiology is on board. Vitals/I&O's: Vital Signs Temp Pulse Resp BP Pulse Ox 98.0 F 70 16 114/72 97 06/06/18 07:59 06/06/18 08:06 06/06/18 07:59 06/06/18 08:06 06/06/18 08:14 Oxygen Flow Rate (L/min) 2 Oxygen Delivery Method Nasal Cannula Weight: 269 lb 13.533 oz Body Mass Index (BMI) 36.6 Intake and Output for Last 24 Hours 06/04/18 06/05/18 06/06/18 23:59 23:59 23:59 Intake Total 480 / 480 Output Total 1325 / 1325 Balance -845 / -845 HEENT: Atraumatic, PERRLA, EOMI, Normocephalic Oral: Moist Mucosa Neck: Supple, No JVD, Negative Carotid Bruits Lungs: Clear to auscultation, Normal air movement, No rhonchi, No wheeze, No rales Cardiovascular: Regular rate, Regular Rhythm, Normal S1, Normal S2, No murmurs Abdomen: Bowel Sounds Present, Soft, Non Tender, Non-Distended, No Hepato-splenomegaly Extremities: No clubbing, No cyanosis, No edema, Capillary Refill Less than 3 Seconds Skin: No rashes, No breakdown Musculoskeletal: No Tenderness to Palpation of Joints or Extremities Lymphatic: No Cervical, Supraclavicular, or Inguinal Adenopathy Neurological: Cranial nerves II-XII grossly intact, Neuro grossly intact, Motor Exam 5/5 strength throughout Psych/Mental Status: Normal Affect, Appropriate, Alert and oriented to time, place, person, mood and affect Laboratory Results 06/05/18 16:27: WBC 7.1, RBC 4.81, Hgb 12.9 L, Hct 41.9, MCV 87.1, MCH 26.8 L, MCHC 30.8 L, RDW 18.5 H, RDW Differential 59.4 H, Plt Count 169, MPV 10.8, Immature Gran % (Auto) 0.300, Neut % (Auto) 60.8, Lymph % (Auto) 24.1, [place] % (Auto) 12.1 H, Eos % (Auto) 2.4, Baso % (Auto) 0.3, Absolute Neuts (auto) 4.3, Absolute Lymphs (auto) 1.70, Total Counted Not Reportable 06/05/18 16:27: Sodium 139, Potassium 4.2, Chloride 103, Carbon Dioxide 29.0, Anion Gap 7, BUN 25 H, Creatinine 1.35 H, Estim Creat Clear Calc 55.88, Est GFR (MDRD) Af Amer 67, Est GFR (MDRD) Non-Af 55 L, BUN/Creatinine Ratio 18.5, Glucose 96, Calcium 8.8, Troponin I 0.144 H 06/05/18 16:27: B-Natriuretic Peptide 256.2 H 06/05/18 16:27: D-Dimer Quant (PE/DVT) 0.52 H* 06/05/18 19:50: Troponin I 0.150 H 06/05/18 22:05: Troponin I 0.147 H 06/05/18 22:20: Urine Color Yellow, Urine Clarity Clear, Urine pH 6.0, Ur Specific [place] 1.015, Urine Protein Negative, Urine Glucose (UA) Normal, Urine Ketones Negative, Urine Occult Blood 10 H, Urine Nitrite Negative, Urine Bilirubin Negative, Urine Urobilinogen Normal, Ur Leukocyte Esterase Negative, Urine RBC 0-5 SEEN, Urine WBC 0 SEEN, Ur Squamous Epith Cells 0 SEEN, Urine Bacteria 0 SEEN, Urine Mucus 0 SEEN 06/06/18 05:35: PT 21.6 H, INR 1.9 06/06/18 05:35: Sodium 143, Potassium 4.1, Chloride 104, Carbon Dioxide 31.0, Anion Gap 8, BUN 22 H, Creatinine 1.41 H, Estim Creat Clear Calc 53.51, Est GFR (MDRD) Af Amer 64, Est GFR (MDRD) Non-Af 53 L, BUN/Creatinine Ratio 15.6, Glucose 87, Calcium 8.4 L, Triglycerides 93, Cholesterol 102, LDL Cholesterol 41, VLDL Cholesterol 19, HDL Cholesterol 42 06/06/18 05:35: Digoxin 1.32 Current Medications Acetaminophen (Tylenol) 650 mg PO Q4H PRN PRN PRN Reason: PAIN Last Admin: 06/05/18 21:14 Dose: 650 mg Acetaminophen (Tylenol) 650 mg PO Q6H PRN PRN PRN Reason: Mild Pain (1-3)/Temp > 100.7 F Amiodarone HCl (Cordarone) 200 mg PO BID [facility] Last Admin: 06/06/18 08:06 Dose: 200 mg Aspirin (Ecotrin) 81 mg PO DAILY@0800 [facility] Last Admin: 06/06/18 08:06 Dose: 81 mg Atorvastatin Calcium (Lipitor) 10 mg PO QHS [facility] Last Admin: 06/05/18 21:14 Dose: 10 mg Digoxin (Lanoxin) 125 mcg PO DAILY@1200 [facility] Magnesium Hydroxide (Milk Of Magnesia) 30 ml PO DAILY PRN PRN Reason: Constipation Last Admin: 06/06/18 08:10 Dose: 30 ml Metoprolol Tartrate (Lopressor (Beta Gladys)) 50 mg PO BID [facility] Last Admin: 06/06/18 08:06 Dose: 50 mg Morphine Sulfate () 2 - 4 mg IV Q4H PRN PRN PRN Reason: MOD-SEVERE PAIN (4-10/10) Nitroglycerin (Nitrostat) 0.4 mg SUBLINGUAL Q5M PRN PRN Reason: CHEST PAIN Fsyuk-0-Ikij Ethyl Esters (Lovaza) 1 gm PO BID [facility] Last Admin: 06/06/18 08:06 Dose: 1 gm Ondansetron HCl (Zofran) 4 mg IV Q8H PRN PRN PRN Reason: NAUSEA Oxycodone HCl (Oxyir) 5 - 10 mg PO Q4H PRN PRN PRN Reason: MOD-SEVERE PAIN (4-10/10) Pantoprazole Sodium (Protonix) 40 mg PO BID [facility] Last Admin: 06/06/18 08:06 Dose: 40 mg Spironolactone (Aldactone) 12.5 mg PO DAILY [facility] Last Admin: 06/06/18 08:06 Dose: 12.5 mg Tamsulosin HCl (Flomax) 0.4 mg PO DAILY@1730 [facility] Warfarin Sodium (Coumadin (Pbkc)) 2 mg PO MoTuThFr@1700 [facility] Last Admin: 06/05/18 22:52 Dose: Not Given Medical Necessity - Tobacco Use Smoking Status: Former smoker Tobacco Use: Non-smoker Assessment/Plan All Active Problems (Last Updated 06/05/18 @ 19:16 by Krishna Mckenna, DO) Chest pain (Acute) Elevated troponin (Acute) Shortness of breath (Acute) 1. NSTEMI chest pain has resolved troponins were mildly elevated: 0.114->0.150->0.147 2D echo pending cardiology consulted on aspirin, statin and metoprolol will increase statin to high intensity statin dose 2. Afib: rate and rhythm controlled. On amiodarone, metoprolol, digoxin and coumadin. 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 CHF: BNP was 256.2. Has a history of CHF. On diuretics. 2D echo pending. has ICD in place will start diuresesis with IVF 3. Left groin pain chronic. Follows up with urology for epididymitis. UA showed no evidence of UTI to follow up with urology on discharge 4. Hypertnension: 5. Hyperlipidemia: on statin. 6. Back pain: chronic. to follow up with his spine surgeon, Dr Gray, on discharge. Had spine surgery in December 2017. 7. ?HALEY: Cr was a1.35 on admisison, now 1.41. Baseline not available. will monitor. No IVF o/.a of CHF and mildly elevated BNP DVT prophylaxis: on coumadin Code Visit Inpatient E&M: 11028 Subs Hosp L3
--- NOTE | 2018-06-06 09:55 | PN_ITS ---
Patient Problems: Active and Suspected Problems (Last Updated 06/05/18 @ 19:16 by Krishna Mckenna DO) Chest pain (Acute) Elevated troponin (Acute) Shortness of breath (Acute) Subjective: Patient seen and examined. She was admitted with a complaint of chest pain and worsening shortness of breath the past few days. She had gone to see his urologist for epididymitis and complained of the above symptoms and so was referred to the ED. She is been managed for chest pain to rule out ACS. Patient denies any chest pain this morning. He denies any shortness of breath, palpitations, abdominal pain, diarrhea vomiting. Review of systems otherwise negative. Labs and vitals reviewed.Cardiology is on board. Vitals/I&O's: Vital Signs Temp Pulse Resp BP Pulse Ox 98.0 F 70 16 114/72 97 06/06/18 07:59 06/06/18 08:06 06/06/18 07:59 06/06/18 08:06 06/06/18 08:14 Oxygen Flow Rate (L/min) 2 Oxygen Delivery Method Nasal Cannula Weight: 269 lb 13.533 oz Body Mass Index (BMI) 36.6 Intake and Output for Last 24 Hours 06/04/18 06/05/18 06/06/18 23:59 23:59 23:59 Intake Total 480 / 480 Output Total 1325 / 1325 Balance -845 / -845 HEENT: Atraumatic, PERRLA, EOMI, Normocephalic Oral: Moist Mucosa Neck: Supple, No JVD, Negative Carotid Bruits Lungs: Clear to auscultation, Normal air movement, No rhonchi, No wheeze, No rales Cardiovascular: Regular rate, Regular Rhythm, Normal S1, Normal S2, No murmurs Abdomen: Bowel Sounds Present, Soft, Non Tender, Non-Distended, No Hepato- splenomegaly Extremities: No clubbing, No cyanosis, No edema, Capillary Refill Less than 3 Seconds Skin: No rashes, No breakdown Musculoskeletal: No Tenderness to Palpation of Joints or Extremities Lymphatic: No Cervical, Supraclavicular, or Inguinal Adenopathy Neurological: Cranial nerves II-XII grossly intact, Neuro grossly intact, Motor Exam 5/5 strength throughout Psych/Mental Status: Normal Affect, Appropriate, Alert and oriented to time, place, person, mood and affect Laboratory Results 06/05/18 16:27: WBC 7.1, RBC 4.81, Hgb 12.9 L, Hct 41.9, MCV 87.1, MCH 26.8 L, MCHC 30.8 L, RDW 18.5 H, RDW Differential 59.4 H, Plt Count 169, MPV 10.8, Immature Gran % (Auto) 0.300, Neut % (Auto) 60.8, Lymph % (Auto) 24.1, [place] % (Auto) 12.1 H, Eos % (Auto) 2.4, Baso % (Auto) 0.3, Absolute Neuts (auto) 4.3, Absolute Lymphs (auto) 1.70, Total Counted Not Reportable 06/05/18 16:27: Sodium 139, Potassium 4.2, Chloride 103, Carbon Dioxide 29.0, Anion Gap 7, BUN 25 H, Creatinine 1.35 H, Estim Creat Clear Calc 55.88, Est GFR (MDRD) Af Amer 67, Est GFR (MDRD) Non-Af 55 L, BUN/Creatinine Ratio 18.5, Glucose 96, Calcium 8.8, Troponin I 0.144 H 06/05/18 16:27: B-Natriuretic Peptide 256.2 H 06/05/18 16:27: D-Dimer Quant (PE/DVT) 0.52 H* 06/05/18 19:50: Troponin I 0.150 H 06/05/18 22:05: Troponin I 0.147 H 06/05/18 22:20: Urine Color Yellow, Urine Clarity Clear, Urine pH 6.0, Ur Specific [place] 1.015, Urine Protein Negative, Urine Glucose (UA) Normal, Urine Ketones Negative, Urine Occult Blood 10 H, Urine Nitrite Negative, Urine Bilirubin Negative, Urine Urobilinogen Normal, Ur Leukocyte Esterase Negative, Urine RBC 0-5 SEEN, Urine WBC 0 SEEN, Ur Squamous Epith Cells 0 SEEN, Urine Bacteria 0 SEEN, Urine Mucus 0 SEEN 06/06/18 05:35: PT 21.6 H, INR 1.9 06/06/18 05:35: Sodium 143, Potassium 4.1, Chloride 104, Carbon Dioxide 31.0, Anion Gap 8, BUN 22 H, Creatinine 1.41 H, Estim Creat Clear Calc 53.51, Est GFR (MDRD) Af Amer 64, Est GFR (MDRD) Non-Af 53 L, BUN/Creatinine Ratio 15.6, Glucose 87, Calcium 8.4 L, Triglycerides 93, Cholesterol 102, LDL Cholesterol 41, VLDL Cholesterol 19, HDL Cholesterol 42 06/06/18 05:35: Digoxin 1.32 Current Medications Acetaminophen (Tylenol) 650 mg PO Q4H PRN PRN PRN Reason: PAIN Last Admin: 06/05/18 21:14 Dose: 650 mg Acetaminophen (Tylenol) 650 mg PO Q6H PRN PRN PRN Reason: Mild Pain (1-3)/Temp > 100.7 F Amiodarone HCl (Cordarone) 200 mg PO BID [facility] Last Admin: 06/06/18 08:06 Dose: 200 mg Aspirin (Ecotrin) 81 mg PO DAILY@0800 [facility] Last Admin: 06/06/18 08:06 Dose: 81 mg Atorvastatin Calcium (Lipitor) 10 mg PO QHS [facility] Last Admin: 06/05/18 21:14 Dose: 10 mg Digoxin (Lanoxin) 125 mcg PO DAILY@1200 [facility] Magnesium Hydroxide (Milk Of Magnesia) 30 ml PO DAILY PRN PRN Reason: Constipation Last Admin: 06/06/18 08:10 Dose: 30 ml Metoprolol Tartrate (Lopressor (Beta Gladys)) 50 mg PO BID [facility] Last Admin: 06/06/18 08:06 Dose: 50 mg Morphine Sulfate () 2 - 4 mg IV Q4H PRN PRN PRN Reason: MOD-SEVERE PAIN (4-10/10) Nitroglycerin (Nitrostat) 0.4 mg SUBLINGUAL Q5M PRN PRN Reason: CHEST PAIN Fniel-9-Cgyz Ethyl Esters (Lovaza) 1 gm PO BID [facility] Last Admin: 06/06/18 08:06 Dose: 1 gm Ondansetron HCl (Zofran) 4 mg IV Q8H PRN PRN PRN Reason: NAUSEA Oxycodone HCl (Oxyir) 5 - 10 mg PO Q4H PRN PRN PRN Reason: MOD-SEVERE PAIN (4-10/10) Pantoprazole Sodium (Protonix) 40 mg PO BID [facility] Last Admin: 06/06/18 08:06 Dose: 40 mg Spironolactone (Aldactone) 12.5 mg PO DAILY [facility] Last Admin: 06/06/18 08:06 Dose: 12.5 mg Tamsulosin HCl (Flomax) 0.4 mg PO DAILY@1730 [facility] Warfarin Sodium (Coumadin (Pbkc)) 2 mg PO MoTuThFr@1700 [facility] Last Admin: 06/05/18 22:52 Dose: Not Given Medical Necessity - Tobacco Use Smoking Status: Former smoker Tobacco Use: Non-smoker Assessment/Plan All Active Problems (Last Updated 06/05/18 @ 19:16 by Krishna Mckenna, DO) Chest pain (Acute) Elevated troponin (Acute) Shortness of breath (Acute) 1. NSTEMI * chest pain has resolved * troponins were mildly elevated: 0.114->0.150->0.147 * 2D echo pending * cardiology consulted * on aspirin, statin and metoprolol * will increase statin to high intensity statin dose * 2. Afib: * rate and rhythm controlled. * On amiodarone, metoprolol, digoxin and coumadin. 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 CHF: * BNP was 256.2. Has a history of CHF. * On diuretics. * 2D echo pending. * has ICD in place * will start diuresesis with IVF * 3. Left groin pain * chronic. Follows up with urology for epididymitis. * UA showed no evidence of UTI * to follow up with urology on discharge * 4. Hypertnension: 5. Hyperlipidemia: on statin. 6. Back pain: chronic. to follow up with his spine surgeon, Dr Gray, on discharge. Had spine surgery in December 2017. 7. ?HALEY: Cr was a1.35 on admisison, now 1.41. Baseline not available. will monitor. No IVF o/.a of CHF and mildly elevated BNP DVT prophylaxis: on coumadin Code Visit Inpatient E&M: 25772 Subs Hosp L3
--- NOTE | 2018-06-06 11:29 | CASEMGMT ---
MISSY RAMSAY assessment: Face to Face with patient for initial transition planning/care coordination assessment. MISSY RAMSAY introduced self and role at [facility], voices understanding and consents to assessment for pt at this time. Pt is lying in bed asleep and does not awaken to verbal stimuli or knock on the door at this time. Pt's answers all questions for pt at this time. Care providers, pharmacy, and demographics verified/updated at this time. PCP: [facility]: Per , pt has 2 cardiologists at [place] and sees a urologist here in [place], but cannot remember names at this time. Preferred Pharmacy: [facility] retail pharmacy or [facility] Insurance: Self-pay Prescription Benefit: Self-pay Living Will/HPOA: Pt's states that he has a living will but does not have HPOA. Advised that we do not have LW on file at [facility] at this time. LNOK: Camron Avendaño, ; Drew and Mercedes Avendaño, son/daughter in law Living Arrangements: Pt lives with in 2 [address] home and states no concerns at home at this time. Per , pt has been independent with ADL's at home at this time. Transportation: states no transportation concerns at this time. DME/HHC: states that pt has the following DME: tub bench, cane, walker, and w/c. states no need for any further DME at this time. Per , pt has not had HHC in the past but he has been to [facility] s/p surgery and admission in the fall. Pt's states no concerns with pt going home at time of discharge. states pt is retired. states pt does not smoke or drink ETOH. voices no further questions/concerns/needs at this time. CM to follow for any further discharge planning/needs. Advised to ask for CM if any further questions/concerns/needs arise, voices understanding. Plan: [place] MISSY RAMSAY
[2018-06-06] MEDS: Digoxin 125 MCG Tablet PO (11:30)
[2018-06-06] MEDS: Furosemide 40 MG/4 ML Vial IV (11:31)
[2018-06-06] MEDS: 0.9% Saline Lock 10 ML Syringe IV (11:31)
[2018-06-06] MEDS: Tamsulosin HCl 0.4 MG Capsule PO (16:50)
--- NOTE | 2018-06-06 18:04 | PCM.PN.CARD ---
Subjectve: The patient states he still had intermittent chest discomfort. However he states overall, since diuretic therapy, he is felt somewhat better with his chest and his breathing. Objective: Vital Signs Temp Pulse Resp BP Pulse Ox 98.2 F 70 20 H 110/67 97 06/06/18 14:00 06/06/18 14:54 06/06/18 14:00 06/06/18 14:00 06/06/18 14:00 Oxygen Flow Rate (L/min) 2 Oxygen Delivery Method Nasal Cannula Weight: 269 lb 13.533 oz Body Mass Index (BMI) 36.6 Intake and Output for Last 24 Hours 06/04/18 06/05/18 06/06/18 23:59 23:59 23:59 Intake Total 1040 / 1040 Output Total 2725 / 2725 Balance -1685 / -1685 General: Awake, Alert, Oriented x 3, Cooperative, No Acute Distress, Obese HEENT: Atraumatic, Normocephalic, PERRL, EOMI, Sclera Non Icteric Oral: Moist Mucosa Neck: Supple, Good ROM, No JVD Lungs: Diminished Bernard Bases Cardiovascular: Regular Rhythm, Normal S1, Normal S2 Abdomen: Bowel Sounds Present, Soft, Non Tender, Obese Extremities: No edema Psych/Mental Status: Appropriate 06/05/18 19:50: Troponin I 0.150 H 06/05/18 22:05: Troponin I 0.147 H 06/05/18 22:20: Urine Color Yellow, Urine Clarity Clear, Urine pH 6.0, Ur Specific [place] 1.015, Urine Protein Negative, Urine Glucose (UA) Normal, Urine Ketones Negative, Urine Occult Blood 10 H, Urine Nitrite Negative, Urine Bilirubin Negative, Urine Urobilinogen Normal, Ur Leukocyte Esterase Negative, Urine RBC 0-5 SEEN, Urine WBC 0 SEEN 06/06/18 05:35: PT 21.6 H, INR 1.9 06/06/18 05:35: Sodium 143, Potassium 4.1, Chloride 104, Carbon Dioxide 31.0, Anion Gap 8, BUN 22 H, Creatinine 1.41 H, Est GFR (MDRD) Af Amer 64, Est GFR (MDRD) Non-Af 53 L, BUN/Creatinine Ratio 15.6, Glucose 87, Calcium 8.4 L, Triglycerides 93, Cholesterol 102, LDL Cholesterol 41, VLDL Cholesterol 19, HDL Cholesterol 42 06/06/18 05:35: Digoxin 1.32 06/06/18 12:30: Troponin I 0.141 H 06/06/18 16:17: Troponin I 0.133 H Rhythm: Electronic ventricular paced rhythm ECHO: 06/06/2018 Interpretation Summary The study was technically difficult. Moderately dilated left ventricle. Moderate global left ventricular systolic dysfunction. The estimated ejection fraction is 35 %. Sigmoid septum. Mildly dilated right ventricle. Mild global right ventricular systolic dysfunction. The left atrium is moderately enlarged. There is mild mitral annular calcification. Mild diffuse mitral valve thickening. The mitral valve chordae are thickened and/or calcified. Mild-Moderate (1-2+) mitral valve insufficiency. Mild tricuspid valve insufficiency. Mild focal aortic valve thickening. Trivial eccentric aortic valve insufficiency. Right ventricular systolic pressure estimated to be 31 mmHg. Transmitral diastolic flow velocities suggest diastolic dysfunction (pseudonormal pattern). ICD or pacer leads identified within the right atrium ICD or pacer leads identified within the right ventricle. ICD: The patient underwent ICD interrogation this day. He does have evidence of 3 mode switch episodes and nonsustained VT episodes appearing on 12/28/2017 with no report of true AT/AF or VT/VF noted with notation the patient was undergoing back surgery on that day; biventricular pacing 100% of the time; battery longevity 5.5 years; no intrinsic P or R waves with rate decrease Medical Necessity - Tobacco Use Smoking Status: Former smoker Tobacco Use: Non-smoker Assessment/Plan 1. Chest pain/shortness of breath The patient presents with chest pain and shortness of breath. His chest pain is somewhat atypical based on its characteristics. He has shortness of breath which is somewhat chronic but potentially worse recently. He is being evaluated based upon his symptoms and his previous cardiovascular condition. He has been found to have indeterminate troponin I levels. He has an underlying electronic ventricular paced rhythm. At the present time he is being monitored. His laboratory studies are being followed. His echocardiogram is as noted above. In the interim he will continue appropriate medical therapy for his symptoms and aforementioned condition. This will include medications for his underlying non-CAD related cardiomyopathy as well as the possibility of underlying CAD. 2. Indeterminate troponin I level Is unclear whether this is representing the development of CAD, which he states he has not had the past, and an acute coronary syndrome versus being a type II event from supply demand mismatch from his underlying non-CAD related cardiomyopathy. At the present time he is going to be followed. As noted above his enzymes will be followed. He will be treated medically. This will include agents such as aspirin, nitrates, beta-blockers, antiplatelet and anticoagulant agents as deemed appropriate. Further evaluation was discussed with him for both noninvasive and invasive stance points. At the present time based on the going concerns the consensus was to proceed with reevaluation in the cardiac catheterization laboratory-when his INR is acceptable. The procedure and risks were discussed with him. He was agreeable to this approach. 3. 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 He states he is undergone diagnostic cardiac catheterization x2 in the past which have demonstrated no underlying CAD. At the present time he needs to continue to be monitored. He will need to continue medical management as deemed appropriate. This may include agents such as beta blockers, diuretics, afterload reducing agents, etc. 4. Chronic systolic CHF The patient appears to have a history compatible with chronic systolic CHF. He may be having an element of acute on chronic symptoms at this time. He will continue medical management. This will also include diuretic therapy with furosemide. He will proceed with further evaluation as noted above. 5. Atrial fibrillation The patient has a history of atrial fibrillation. He states he has been treated medically. He has been on it appears rate control therapy and anti-arrhythmic therapy and anticoagulant therapy. He notes his anticoagulant therapy has recently been adjusted after undergoing urologic procedures. If the patient requires repeat invasive evaluation and his anticoagulant therapy will have to be interrupted to allow his INR to be within acceptable range for such an evaluation. 6. ICD The patient believes he has a [employer] ICD. He states it was placed because of his weak heart . His ICD interrogation is as noted above. 7. Hyperlipidemia He will continue lipid-lowering therapy as deemed appropriate. 8. Hypertension His blood pressure can be monitored. His medications can be adjusted as needed. Comment: The patient's case has been discussed and reviewed with the patient and his spouse. He is agreeable to the aforementioned evaluation care plan. This note was generated with [employer] software. It may contain incorrect words, spelling, and punctuation that were not noted in checking the note before signing.
[2018-06-06] MEDS: Phytonadione (Vit K) 10 MG/ML Ampul 5 MG PO (18:57)
[2018-06-06] MEDS: TICAGRELOR 90 MG TABLET 180 MG PO (22:55)
[2018-06-06] MEDS: Atorvastatin Calcium 40 MG Tablet PO (22:56)
[2018-06-07] VITALS (27 sets, daily range): BP systolic 94–115; BP diastolic 57–71; PULSE 70–73; RESP 16–20; TEMP 36.4–36.9; O2SAT 96–99
[2018-06-07] MEDS: Aspirin E.C. 81 MG Tablet PO (05:55)
--- NOTE | 2018-06-07 05:55 | EKG12_ITS ---
Test Reason : AM EKG Blood Pressure : / mmHG Vent. Rate : 070 BPM Atrial Rate : 070 BPM P-R Int : 000 ms QRS Dur : 196 ms QT Int : 496 ms P-R-T Axes : 000 -65 096 degrees QTc Int : 535 ms AV dual-paced rhythm Biventricular pacemaker detected Abnormal ECG When compared with ECG of 06-JUN-2018 12:11, MANUAL COMPARISON REQUIRED, DATA IS UNCONFIRMED Confirmed by WEST PLASCENCIA, NORMAN ([id number]), editor publications DORIAN HENDRICKSON ([id number]) on 06/11/2018 10:21:14 AM Referred By: DR YANES Confirmed By:NORMAN DODSON MD
[2018-06-07] MEDS: 0.9% Normal Saline 1,000 ML 15 ML IV (05:56)
[2018-06-07] MEDS: Metoprolol Tartrate 50 MG Tablet PO ×2 (05:56→22:45)
[2018-06-07] MEDS: TICAGRELOR 90 MG TABLET PO (05:56)
[2018-06-07 06:10] LABS: Absolute Lymphocyte Count 1.61 X10^3/ul (0.83-4.51); Basophil# 0.02 X10^3/uL; Basophil% 0.3 % (0-1); Eosinophil# 0.24 X10^3/uL; Eosinophils% 3.7 % (0-5); Hematocrit 43.1 % (40-54); Hemoglobin 13.3 g/dl (13.0-16.5); Lymphocyte # 1.61 X10^3/ul (4.0); Lymphocyte % 24.6 % (19-41); Mean Corp Hgb Conc 30.9 g/gl (32-36); Mean Corpuscular Hgb 27.3 pg (27.0-32.0); Mean Corpuscular Volume 88.3 fL (80-94); Mean Platelet Vol. 10.5 fl (6.2-12.0); Monocyte# 0.69 X10^3/uL; Monocyte% 10.6 % (0-10); Neutrophil # 3.97 X10^3/uL (2.7-7.7); Neutrophil % 60.6 % (47-70); POSITIVE COUNT NO; POSITIVE DIFFERENTIAL NO; POSITIVE MORPHOLOGY NO; Platelet Count 163 K/mm3 (150-450); RBC Distribution Width CV 18.5 % (11.6-14.6); RBC Distribution Width SD 59.5 fl (35.1-43.9); Red Blood Count 4.88 M/mm3 (4.6-6.2); White Blood Count 6.5 K/mm3 (4.4-11.0)
[2018-06-07 06:14] LABS: Anion Gap 8 (5-15); BUN 25 mg/dL (7-18); BUN/Creat Ratio 17.5 RATIO (10-20); Calcium,Total 8.7 mg/dL (8.5-10.1); Chloride 103 mmol/L (98-107); Creatinine, Serum 1.43 mg/dL (0.70-1.30); EST Glomerular Filtration Rate 52 mL/min (>60); Est Glom Filt Rate - Afr Amer 63 mL/min (>60); Estimated Creatinine Clearance 52.76 ml/min; Glucose 88 mg/dL (74-106); Potassium 4.2 mmol/L (3.5-5.1); Sodium Level 142 mmol/L (136-145)
[2018-06-07 06:17] LABS: International Normalized Ratio 1.6; Prothrombin Time (Protime)PT. 18.7 SECONDS (11.7-14.9)
[2018-06-07 06:18] LABS: Partial Thromboplast Time 30.1 Seconds (24.1-36.2)
--- NOTE | 2018-06-07 06:50 | NURSING ---
Report given to Norris LOUIS in Clinical Abstractor
--- NOTE | 2018-06-07 08:01 | VDLE_ITS ---
Reason For Study: Chest pain - Dyspnea RIGHT LEFT GSV is normal. GSV is normal. CFV is compressible, spontaneous, phasic, CFV is compressible, spontaneous, phasic, competent and demonstrates normal competent, and demonstrates normal augmentation. augmentation. FV is compressible, spontaneous, phasic, FV is compressible, spontaneous, phasic, competent and demonstrates normal competent and demonstrates normal augmentation. augmentation. POP V is compressible, spontaneous, phasic, POP V is compressible, spontaneous, phasic, competent and demonstrates normal competent and demonstrates normal augmentation. augmentation. T/P Trunk is compressible. T/P Trunk is compressible. PTV is compressible. PTV is compressible. RT PerV is compressible. LT PerV is compressible. Procedure Exam performed portable in patient room. A preliminary report was called and/or faxed to [facility]. Interpretation Summary Deep veins of the lower extremities are bilaterally patent and compressible segmentally. There is no evidence of deep vein thrombosis on either side. Valvular competence appears intact within the proximal deep venous systems bilaterally. The greater saphenous veins appear bilaterally patent and compressible segmentally. Ordering Physician: Danial Jensen Referring Physician: Ayo Burns MD Performed By: Barbara Livingston RVT
--- NOTE | 2018-06-07 08:03 | PCM.PN.CARD ---
Subjectve: The patient is now status post diagnostic cardiac catheterization. He has no acute pains or adverse events. Objective: Vital Signs Temp Pulse Resp BP Pulse Ox 97.8 F 70 18 114/71 97 06/07/18 05:50 06/07/18 05:56 06/07/18 05:50 06/07/18 05:50 06/07/18 05:50 Oxygen Flow Rate (L/min) 2 Oxygen Delivery Method Nasal Cannula Weight: 269 lb 13.533 oz Body Mass Index (BMI) 36.6 Intake and Output for Last 24 Hours 06/05/18 06/06/18 06/07/18 23:59 23:59 23:59 Intake Total 1400 / 1400 Output Total 2725 / 2725 525 / 525 Balance -1325 / -1325 -525 / -525 General: Awake, Alert, Oriented x 3, Cooperative, No Acute Distress, Obese HEENT: Atraumatic, Normocephalic, PERRL, EOMI, Sclera Non Icteric Oral: Moist Mucosa Neck: Supple, Good ROM, No JVD Lungs: Clear to auscultation Cardiovascular: Regular Rhythm, Normal S1, Normal S2 Vascular: Normal Radial Pulses Abdomen: Bowel Sounds Present, Soft, Non Tender, Obese Extremities: Trace RLE Edema, Trace LLE Edema Psych/Mental Status: Appropriate 06/05/18 22:20: Urine Color Yellow, Urine Clarity Clear, Urine pH 6.0, Ur Specific [place] 1.015, Urine Protein Negative, Urine Glucose (UA) Normal, Urine Ketones Negative, Urine Occult Blood 10 H, Urine Nitrite Negative, Urine Bilirubin Negative, Urine Urobilinogen Normal, Ur Leukocyte Esterase Negative, Urine RBC 0-5 SEEN, Urine WBC 0 SEEN 06/06/18 12:30: Troponin I 0.141 H 06/06/18 16:17: Troponin I 0.133 H 06/06/18 18:14: Troponin I 0.147 H 06/07/18 05:20: WBC 6.5, RBC 4.88, Hgb 13.3, Hct 43.1, MCV 88.3, MCH 27.3, MCHC 30.9 L, RDW 18.5 H, RDW Differential 59.5 H, Plt Count 163, MPV 10.5, Immature Gran % (Auto) 0.200, Neut % (Auto) 60.6, Lymph % (Auto) 24.6, [place] % (Auto) 10.6 H, Eos % (Auto) 3.7, Baso % (Auto) 0.3, Absolute Neuts (auto) 4.0, Total Counted Not Reportable 06/07/18 05:20: Sodium 142, Potassium 4.2, Chloride 103, Carbon Dioxide 31.0, Anion Gap 8, BUN 25 H, Creatinine 1.43 H, Est GFR (MDRD) Af Amer 63, Est GFR (MDRD) Non-Af 52 L, BUN/Creatinine Ratio 17.5, Glucose 88, Calcium 8.7 06/07/18 05:20: PT 18.7 H, INR 1.6, APTT 30.1 Rhythm: Electronic ventricular paced rhythm Cardiac Cath: Preliminary evaluation: Left ventricle: Global left ventricular systolic dysfunction; estimated LVEF approximately 30%; angiographically normal-appearing coronary arteries Medical Necessity - Tobacco Use Smoking Status: Former smoker Tobacco Use: Non-smoker Assessment/Plan 1. Chest pain/shortness of breath The patient has undergone cardiovascular evaluation with diagnostic cardiac catheterization. He appears to have angiographically normal-appearing coronary arteries. Thus his chest pain appears to be non-CAD related. May be concern as to whether or not the patient could have, based upon his recent interruption of anticoagulant therapy for his noncardiac surgical procedures, any concern of thromboembolic disease. Thus it may be reasonable to evaluate him for any obvious DVT with a venous duplex study and potentially a chest CT scan for any obvious evidence of pulmonary emboli. 2. Indeterminate troponin I level Is unclear whether this is representing the development of CAD, which he states he has not had the past, and an acute coronary syndrome versus being a type II event from supply demand mismatch from his underlying non-CAD related cardiomyopathy. Based upon the above he does not appear to have angiographically significant CAD to explain his indeterminate troponin I levels. Thus this may be related to his non-CAD related cardiovascular condition. Again noncardiovascular etiologies may need to be explored as well. 3. 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 He states he is undergone diagnostic cardiac catheterization x2 in the past which have demonstrated no underlying CAD. At the present time he needs to continue to be monitored. He will need to continue medical management as deemed appropriate. This may include agents such as beta blockers, diuretics, afterload reducing agents, etc. 4. Chronic systolic CHF The patient appears to have a history compatible with chronic systolic CHF. He may be having an element of acute on chronic symptoms at this time. He will continue medical management. This will also include diuretic therapy with furosemide. He will proceed with further evaluation as noted above. 5. Atrial fibrillation The patient has a history of atrial fibrillation. He states he has been treated medically. He has been on it appears rate control therapy and anti-arrhythmic therapy and anticoagulant therapy. 6. ICD The patient believes he has a [employer] ICD. He states it was placed because of his weak heart . His ICD was interrogated and appears to be functioning appropriately. 7. Hyperlipidemia He will continue lipid-lowering therapy as deemed appropriate. 8. Hypertension His blood pressure can be monitored. His medications can be adjusted as needed. Comment: The patient's case has been discussed and reviewed with the patient and his spouse. This note was generated with [employer] dictation software. It may contain incorrect words, spelling, and punctuation that were not noted in checking the note before signing.
--- NOTE | 2018-06-07 09:08 | NURSING ---
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 Heart Cath negative. 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 TR band on right wrist with 14ml air, no bleeding or hematoma noted.
[2018-06-07] MEDS: Spironolactone 25 MG Tablet 12.5 MG PO (09:49)
[2018-06-07] MEDS: Furosemide 40 MG/4 ML Vial IV (09:50)
[2018-06-07] MEDS: Omega-3 Acid Ethyl Esters 1 GM Capsule PO ×2 (09:50→22:27)
[2018-06-07] MEDS: Pantoprazole Sodium 40 MG Tablet PO ×2 (09:50→22:27)
[2018-06-07] MEDS: Amiodarone 200 MG Tablet PO ×2 (09:50→22:45)
--- NOTE | 2018-06-07 10:11 | NURSING ---
Radiology here to U/S lower extremities per order.
--- NOTE | 2018-06-07 10:37 | PCM.PN.HOSP ---
Patient Problems: Active and Suspected Problems (Last Updated 06/05/18 @ 19:16 by Krishna Mckenna DO) Chest pain (Acute) Elevated troponin (Acute) Shortness of breath (Acute) Subjective: Patient seen and examined. He had just come back from cardiac cath and was very drowsy, likely as a result of pain meds. Unable to do review of systems o/a of severe drowsiness. is by his bedside and wants further imaging to rule out a clot in his lungs. I informed that due to his impaired kidney function, I will order a V/Q scan later. labs and vitals reviewed. Vitals/I&O's: Vital Signs Temp Pulse Resp BP Pulse Ox 98 F 70 20 H 101/66 97 06/07/18 08:30 06/07/18 10:01 06/07/18 10:01 06/07/18 10:01 06/07/18 10:01 Oxygen Flow Rate (L/min) 2 Oxygen Delivery Method Nasal Cannula Weight: 269 lb 13.533 oz Body Mass Index (BMI) 36.6 Intake and Output for Last 24 Hours 06/05/18 06/06/18 06/07/18 23:59 23:59 23:59 Intake Total 1400 / 1400 Output Total 2725 / 2725 525 / 525 Balance -1325 / -1325 -525 / -525 HEENT: Atraumatic, PERRLA, EOMI, Normocephalic, very lethargic Oral: Moist Mucosa Neck: Supple, No JVD, Negative Carotid Bruits Lungs: Clear to auscultation, Normal air movement, No rhonchi, No wheeze, No rales Cardiovascular: Regular rate, Regular Rhythm, Normal S1, Normal S2, No murmurs Abdomen: Bowel Sounds Present, Soft, Non Tender, Non-Distended, No Hepato-splenomegaly Extremities: No clubbing, No cyanosis, No edema, Capillary Refill Less than 3 Seconds Skin: No rashes, No breakdown Musculoskeletal: No Tenderness to Palpation of Joints or Extremities Lymphatic: No Cervical, Supraclavicular, or Inguinal Adenopathy Neurological: Cranial nerves II-XII grossly intact, Neuro grossly intact, Motor Exam 5/5 strength throughout Psych/Mental Status: very lethargic Laboratory Results 06/06/18 12:30: Troponin I 0.141 H 06/06/18 16:17: Troponin I 0.133 H 06/06/18 18:14: Troponin I 0.147 H 06/07/18 05:20: WBC 6.5, RBC 4.88, Hgb 13.3, Hct 43.1, MCV 88.3, MCH 27.3, MCHC 30.9 L, RDW 18.5 H, RDW Differential 59.5 H, Plt Count 163, MPV 10.5, Immature Gran % (Auto) 0.200, Neut % (Auto) 60.6, Lymph % (Auto) 24.6, Carlton % (Auto) 10.6 H, Eos % (Auto) 3.7, Baso % (Auto) 0.3, Absolute Neuts (auto) 4.0, Absolute Lymphs (auto) 1.61, Total Counted Not Reportable 06/07/18 05:20: Sodium 142, Potassium 4.2, Chloride 103, Carbon Dioxide 31.0, Anion Gap 8, BUN 25 H, Creatinine 1.43 H, Estim Creat Clear Calc 52.76, Est GFR (MDRD) Af Amer 63, Est GFR (MDRD) Non-Af 52 L, BUN/Creatinine Ratio 17.5, Glucose 88, Calcium 8.7 06/07/18 05:20: PT 18.7 H, INR 1.6, APTT 30.1 Current Medications Acetaminophen (Tylenol) 650 mg PO Q4H PRN PRN PRN Reason: PAIN Last Admin: 06/05/18 21:14 Dose: 650 mg Acetaminophen (Tylenol) 650 mg PO Q6H PRN PRN PRN Reason: Mild Pain (1-3)/Temp > 100.7 F Amiodarone HCl (Cordarone) 200 mg PO BID [facility] Last Admin: 06/07/18 09:50 Dose: 200 mg Aspirin (Ecotrin) 81 mg PO DAILY@0800 [facility] Last Admin: 06/07/18 05:55 Dose: 81 mg Atorvastatin Calcium (Lipitor) 40 mg PO QHS [facility] Last Admin: 06/06/18 22:56 Dose: 40 mg Digoxin (Lanoxin) 125 mcg PO DAILY@1200 [facility] Last Admin: 06/06/18 11:30 Dose: 125 mcg Furosemide (Lasix) 40 mg IV DAILY [facility] Last Admin: 06/07/18 09:50 Dose: 40 mg Sodium Chloride () 1,000 mls @ 15 mls/hr IV .Q48H [facility] Last Admin: 06/07/18 05:56 Dose: 15 mls/hr Sodium Chloride () 1,000 mls @ 50 mls/hr IV .Q20H [facility] Last Admin: 06/07/18 08:47 Dose: Not Given Magnesium Hydroxide (Milk Of Magnesia) 30 ml PO DAILY PRN PRN Reason: Constipation Last Admin: 06/06/18 08:10 Dose: 30 ml Metoprolol Tartrate (Lopressor (Beta Gladys)) 50 mg PO BID [facility] Last Admin: 06/07/18 05:56 Dose: 50 mg Morphine Sulfate () 2 - 4 mg IV Q4H PRN PRN PRN Reason: MOD-SEVERE PAIN (-03/07) Nitroglycerin (Nitrostat) 0.4 mg SUBLINGUAL Q5M PRN PRN Reason: CHEST PAIN [id number] Ethyl Esters (Lovaza) 1 gm PO BID [facility] Last Admin: 06/07/18 09:50 Dose: 1 gm Ondansetron HCl (Zofran) 4 mg IV Q8H PRN PRN PRN Reason: NAUSEA Oxycodone HCl (Oxyir) 5 - 10 mg PO Q4H PRN PRN PRN Reason: MOD-SEVERE PAIN (-03/07) Pantoprazole Sodium (Protonix) 40 mg PO BID [facility] Last Admin: 06/07/18 09:50 Dose: 40 mg Spironolactone (Aldactone) 12.5 mg PO DAILY [facility] Last Admin: 06/07/18 09:49 Dose: 12.5 mg Tamsulosin HCl (Flomax) 0.4 mg PO DAILY@1730 [facility] Last Admin: 06/06/18 16:50 Dose: 0.4 mg Ticagrelor (Brilinta) 90 mg PO BID [facility] Last Admin: 06/07/18 05:56 Dose: 90 mg Medical Necessity - Tobacco Use Smoking Status: Former smoker Tobacco Use: Non-smoker Assessment/Plan All Active Problems (Last Updated 06/05/18 @ 19:16 by Krishna Mckenna DO) Chest pain (Acute) Elevated troponin (Acute) Shortness of breath (Acute) 1. NSTEMI chest pain has resolved troponins were mildly elevated: 0.114->0.150->0.147 2D echo: moderately dilated LV and moderate global LVSF with EF of 35%, mild global RV systolic dysfunction. LA moderately enlarged. RVSP is 31mmHg. ICD pacers in right atrium and right ventricle. cardiac cath today: normal coronaries on aspirin, statin and metoprolol 2. Afib: rate and rhythm controlled. On amiodarone, metoprolol, digoxin and coumadin. 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 Acute on chronic systolic CHF: BNP was 256.2. Has a history of CHF. On diuretics. output over last 24 hours was 2.725L; in negative balance by 1.85L 2D echo; EF of 35% has ICD in place 3. Left groin pain chronic. Follows up with urology for epididymitis. UA showed no evidence of UTI to follow up with urology on discharge 4. Hypertnension: on metoprolol. Controlled 5. Hyperlipidemia: on statin. 6. Back pain: chronic. to follow up with his spine surgeon, Dr Gray, on discharge. Had spine surgery in December 2017. 7. ?HALEY: Cr was a1.35 on admisison, now 1.413 today. Baseline not available. will monitor. DVT prophylaxis: on coumadin Code Visit Inpatient E&M: 63675 Subs Hosp L3
--- NOTE | 2018-06-07 10:47 | PN_ITS ---
Patient Problems: Active and Suspected Problems (Last Updated 06/05/18 @ 19:16 by Krishna Mckenna DO) Chest pain (Acute) Elevated troponin (Acute) Shortness of breath (Acute) Subjective: Patient seen and examined. He had just come back from cardiac cath and was very drowsy, likely as a result of pain meds. Unable to do review of systems o/a of severe drowsiness. is by his bedside and wants further imaging to rule out a clot in his lungs. I informed that due to his impaired kidney function, I will order a V/Q scan later. labs and vitals reviewed. Vitals/I&O's: Vital Signs Temp Pulse Resp BP Pulse Ox 98 F 70 20 H 101/66 97 06/07/18 08:30 06/07/18 10:01 06/07/18 10:01 06/07/18 10:01 06/07/18 10:01 Oxygen Flow Rate (L/min) 2 Oxygen Delivery Method Nasal Cannula Weight: 269 lb 13.533 oz Body Mass Index (BMI) 36.6 Intake and Output for Last 24 Hours 06/05/18 06/06/18 06/07/18 23:59 23:59 23:59 Intake Total 1400 / 1400 Output Total 2725 / 2725 525 / 525 Balance -1325 / -1325 -525 / -525 HEENT: Atraumatic, PERRLA, EOMI, Normocephalic, very lethargic Oral: Moist Mucosa Neck: Supple, No JVD, Negative Carotid Bruits Lungs: Clear to auscultation, Normal air movement, No rhonchi, No wheeze, No rales Cardiovascular: Regular rate, Regular Rhythm, Normal S1, Normal S2, No murmurs Abdomen: Bowel Sounds Present, Soft, Non Tender, Non-Distended, No Hepato- splenomegaly Extremities: No clubbing, No cyanosis, No edema, Capillary Refill Less than 3 Seconds Skin: No rashes, No breakdown Musculoskeletal: No Tenderness to Palpation of Joints or Extremities Lymphatic: No Cervical, Supraclavicular, or Inguinal Adenopathy Neurological: Cranial nerves II-XII grossly intact, Neuro grossly intact, Motor Exam 5/5 strength throughout Psych/Mental Status: very lethargic Laboratory Results 06/06/18 12:30: Troponin I 0.141 H 06/06/18 16:17: Troponin I 0.133 H 06/06/18 18:14: Troponin I 0.147 H 06/07/18 05:20: WBC 6.5, RBC 4.88, Hgb 13.3, Hct 43.1, MCV 88.3, MCH 27.3, MCHC 30.9 L, RDW 18.5 H, RDW Differential 59.5 H, Plt Count 163, MPV 10.5, Immature Gran % (Auto) 0.200, Neut % (Auto) 60.6, Lymph % (Auto) 24.6, [place] % (Auto) 10.6 H, Eos % (Auto) 3.7, Baso % (Auto) 0.3, Absolute Neuts (auto) 4.0, Absolute Lymphs (auto) 1.61, Total Counted Not Reportable 06/07/18 05:20: Sodium 142, Potassium 4.2, Chloride 103, Carbon Dioxide 31.0, Anion Gap 8, BUN 25 H, Creatinine 1.43 H, Estim Creat Clear Calc 52.76, Est GFR (MDRD) Af Amer 63, Est GFR (MDRD) Non-Af 52 L, BUN/Creatinine Ratio 17.5, Glucose 88, Calcium 8.7 06/07/18 05:20: PT 18.7 H, INR 1.6, APTT 30.1 Current Medications Acetaminophen (Tylenol) 650 mg PO Q4H PRN PRN PRN Reason: PAIN Last Admin: 06/05/18 21:14 Dose: 650 mg Acetaminophen (Tylenol) 650 mg PO Q6H PRN PRN PRN Reason: Mild Pain (1-3)/Temp > 100.7 F Amiodarone HCl (Cordarone) 200 mg PO BID [facility] Last Admin: 06/07/18 09:50 Dose: 200 mg Aspirin (Ecotrin) 81 mg PO DAILY@0800 [facility] Last Admin: 06/07/18 05:55 Dose: 81 mg Atorvastatin Calcium (Lipitor) 40 mg PO QHS [facility] Last Admin: 06/06/18 22:56 Dose: 40 mg Digoxin (Lanoxin) 125 mcg PO DAILY@1200 [facility] Last Admin: 06/06/18 11:30 Dose: 125 mcg Furosemide (Lasix) 40 mg IV DAILY [facility] Last Admin: 06/07/18 09:50 Dose: 40 mg Sodium Chloride () 1,000 mls @ 15 mls/hr IV .Q48H [facility] Last Admin: 06/07/18 05:56 Dose: 15 mls/hr Sodium Chloride () 1,000 mls @ 50 mls/hr IV .Q20H [facility] Last Admin: 06/07/18 08:47 Dose: Not Given Magnesium Hydroxide (Milk Of Magnesia) 30 ml PO DAILY PRN PRN Reason: Constipation Last Admin: 06/06/18 08:10 Dose: 30 ml Metoprolol Tartrate (Lopressor (Beta Gladys)) 50 mg PO BID [facility] Last Admin: 06/07/18 05:56 Dose: 50 mg Morphine Sulfate () 2 - 4 mg IV Q4H PRN PRN PRN Reason: MOD-SEVERE PAIN (-03/07) Nitroglycerin (Nitrostat) 0.4 mg SUBLINGUAL Q5M PRN PRN Reason: CHEST PAIN [id number]-[id number] Ethyl Esters (Lovaza) 1 gm PO BID [facility] Last Admin: 06/07/18 09:50 Dose: 1 gm Ondansetron HCl (Zofran) 4 mg IV Q8H PRN PRN PRN Reason: NAUSEA Oxycodone HCl (Oxyir) 5 - 10 mg PO Q4H PRN PRN PRN Reason: MOD-SEVERE PAIN (-03/07) Pantoprazole Sodium (Protonix) 40 mg PO BID [facility] Last Admin: 06/07/18 09:50 Dose: 40 mg Spironolactone (Aldactone) 12.5 mg PO DAILY [facility] Last Admin: 06/07/18 09:49 Dose: 12.5 mg Tamsulosin HCl (Flomax) 0.4 mg PO DAILY@1730 [facility] Last Admin: 06/06/18 16:50 Dose: 0.4 mg Ticagrelor (Brilinta) 90 mg PO BID [facility] Last Admin: 06/07/18 05:56 Dose: 90 mg Medical Necessity - Tobacco Use Smoking Status: Former smoker Tobacco Use: Non-smoker Assessment/Plan All Active Problems (Last Updated 06/05/18 @ 19:16 by Krishna Mckenna DO) Chest pain (Acute) Elevated troponin (Acute) Shortness of breath (Acute) 1. NSTEMI * chest pain has resolved * troponins were mildly elevated: 0.114->0.150->0.147 * 2D echo: moderately dilated LV and moderate global LVSF with EF of 35%, mild global RV systolic dysfunction. LA moderately enlarged. RVSP is 31mmHg. ICD pacers in right atrium and right ventricle. * cardiac cath today: normal coronaries * on aspirin, statin and metoprolol * * 2. Afib: * rate and rhythm controlled. * On amiodarone, metoprolol, digoxin and coumadin. 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 Acute on chronic systolic CHF: * BNP was 256.2. Has a history of CHF. * On diuretics. output over last 24 hours was 2.725L; in negative balance by 1.85L * 2D echo; EF of 35% * has ICD in place * * 3. Left groin pain * chronic. Follows up with urology for epididymitis. * UA showed no evidence of UTI * to follow up with urology on discharge * 4. Hypertnension: on metoprolol. Controlled 5. Hyperlipidemia: on statin. 6. Back pain: chronic. to follow up with his spine surgeon, Dr Gray, on discharge. Had spine surgery in December 2017. 7. ?HALEY: Cr was a1.35 on admisison, now 1.413 today. Baseline not available. will monitor. DVT prophylaxis: on coumadin Code Visit Inpatient E&M: 07372 Subs Hosp L3
[2018-06-07] MEDS: Digoxin 125 MCG Tablet PO (11:07)
--- NOTE | 2018-06-07 12:54 | NURSING ---
Pt sitting up in bed states just feels very weak. VSS. 02 sats 96% on 2L. at bedside. Call light within reach. Support given.
[2018-06-07] MEDS: Tamsulosin HCl 0.4 MG Capsule PO (16:33)
[2018-06-07] MEDS: 0.9% Normal Saline 1,000 ML 50 ML IV (18:43)
--- NOTE | 2018-06-07 18:57 | CL.D_ITS ---
Patient Name: EVIN HENDRICKSON Study Date: 06/07/2018 Performing: Danial Jensen MD Ht: 72 inches 183 cm : 1945 Wt: 269.3 lbs 122 kg Age: 72 Gender: male BSA: 2.42 PROCEDURE(S) PERFORMED DX01-FOB/COR/LV CLINICAL PROFILE AND INDICATIONS Indications: Suspected CAD, LV Dysfunction, Cardiomyopathy Heart Failure: NYHA Class: 3, Newly Diagnosed: No, Heart Failure Type: Systolic Stress/Imaging Stress/Image Study Performed: No Angina Classification Anginal Classification w/in 2 Weeks: CCS III CAD Presentations: Other: Chest pain / shortness of breath CONCLUSIONS Elevated Left Ventricular End Diastolic Pressure Global LV systolic dysfunction- Moderate LVEF: by LV gram 30 % Normal coronary arteries RECOMMENDATIONS Risk factor modification Medical therapy DESCRIPTION OF PROCEDURE The patient arrived to the procedure lab. The risks and benefits of the procedure as well as a full d escription of our services here and current unavailability of surgical backup were fully explained to the patient and/or their significant other prior to the catheterization. The Timeout was completed, verifying the correct patient and procedure. The patient's procedural site was prepped and draped in the usual fashion. Local anesthetic was given subcutaneously to right radial region with Lidocaine 2% . Using a modified Seldinger technique, arterial access was obtained via the right radial artery, a 6 Fr sheath was inserted. Left Coronary Artery selective angiography was then performed in multiple vi ews using a 5 Fr. 4.0 [place] catheter. Right Coronary Artery selective angiography was then performed in multiple views using a 5 Fr. 4.0 [place] catheter. Left Ventriculography was performed in AQUINO projec tion using a 5 Fr. Pigtail catheter. LV to AO pullback pressures were then recorded.The arterial sheath was pulled and a TR Band was applied for hemostasis CORONARY ANGIOGRAPHY DOMINANCE: Right Dominant LEFT HEART ASSESSMENT Left Ventricular Ejection Fraction: by LV Gram 30 % Global Hypokinesis Elevated Left Ventricular End Diastolic Pressure LVEDP: 24 mmHg LEFT MAIN: Angiographically normal LEFT ANTERIOR DECENDING ARTERY: Angiographically normal CIRCUMFLEX ARTERY: Angiographically normal RIGHT CORONARY ARTERY: Angiographically normal VALVE FINDINGS: Normal Aortic Valve function Normal Mitral Valve function AORTIC ROOT: Angiographically normal COMPLICATIONS No Complications PROCEDURE MEDICATIONS Fentanyl 50 mcg IV Versed 1 mg IV Oxygen: 2 L/min via nasal cannula Heparin diluted in 23cc Heparinized saline. Patient given 10cc IA of this solution. 06/07/2018 07:38: 54 Verapamil 2.5mg, Ntg 100mcgs, 2000 units of Heparin diluted in 23cc Heparinized saline. Patient give n 10cc IA of this solution. 06/07/2018 07:38:54 IV Bolus: .9 NaCl 400 ml total 06/07/2018 07:43:54 SUMMARY OF HEMODYNAMIC DATA Time AIR REST ECG 07:09:42 AO 82/62 (70) SA 07:41:05 LV 96/23, 29 07:48:12 LV 94/17, 24 07:48:19 LV 105/13, 24 07:49:11 LV 106/9, 22 07:49:18 LVp 107/3, 26 07:49:24 AOp 103/62 (78) 07:49:29 Signed By Danial Jensen MD On 06/07/2018 18:56:28 Danial Jensen MD
[2018-06-07] MEDS: Atorvastatin Calcium 40 MG Tablet PO (22:27)
[2018-06-07] MEDS: Acetaminophen 325 MG Tablet 650 MG PO (22:46)
--- NOTE | 2018-06-07 23:05 | RAD_ITS ---
STUDY: X-RAY CHEST REASON FOR EXAM: Male, 72 years old. Confusion and weakness. TECHNIQUE: Single AP portable view of the chest. COMPARISON: Prior chest radiograph of June 05, 2018 FINDINGS: Chronically elevated right diaphragm with linear areas of scarring at the right lung base. Negative for new consolidation, focal atelectasis or a substantial pleural effusion. Continued cardiomegaly. Intracardiac leads are unchanged in position with a right atrial pacemaker lead and a right ventricular defibrillator. Normal visualized pulmonary arteries. There is atherosclerotic calcification of the aortic arch with tortuosity. There are diffuse degenerative changes of the visualized thoracic spine. Normal visualized ribs, clavicles, and shoulders. There is no demonstrated abnormality of the visualized soft tissue structures of the upper abdomen. RAD/Chest 1 View (Portable) IMPRESSION: No acute cardiopulmonary findings or changes. Stable scarring at the right lung base and an elevated right diaphragm. Continued cardiomegaly. ICD unchanged. Electronically Signed: Lucinda Mora MD at 23:28 EST , Service support ,
--- NOTE | 2018-06-07 23:11 | PCM.PN.BLA ---
Progress Note Rapid response: Patient with severe lethargy. Nurse reported patient was more reactive at the beginning of his shift. Patient had a complaint of headache; neck pain and back pain and was given Tylenol. Patient had Cardiac catheterization earlier on in the day that showed normal coronaries but with left ventricular ejection fraction of 30% and global hypokinesis.. Upon examination patient was lethargic. He knew where he was. Heart sounds S1-S2 present. There was no murmur, gallop or rub. Lungs clear to auscultate. Pupils were equal and reactive to light. Acute encephalopathy with no clear etiology. CT of the head does show any acute pathology Chest x-ray did not show any acute pathology. We will check a CBC, BMP; ammonia level and urinalysis. If patient continues to be lethargic in a.m. consider MRI/MRA of head and neck.
--- NOTE | 2018-06-07 23:20 | CT_ITS ---
STUDY: CT BRAIN WITHOUT CONTRAST REASON FOR EXAM: Male, 72 years old. Confusion and lethargy after heart catheterization. RADIATION DOSAGE (If Supplied By Facility): CTDIvol = ( 44.99 ) mGy, DLP = ( 812.98 ) mGycm TECHNIQUE: Transaxial CT imaging of the brain was performed without administration of intravenous contrast material. Individualized dose optimization techniques were used for this CT. COMPARISON: None. FINDINGS: Normal soft tissue structures. Normal calvarium. Normal size ventricles and extra-axial spaces for the patient's age. Normal white matter tracts of the cerebral hemispheres. Normal basal ganglia and thalami. Normal brainstem. Normal cerebellum. There is no intracranial hemorrhage. There are no findings of an acute ischemic infarction. Small retention cyst right maxillary sinus. CT/Brain/Head without Contrast IMPRESSION: Normal unenhanced CT scan of the brain. Small retention cyst right maxillary sinus. Electronically Signed: Lucinda Mora MD at 23:40 EST , Service support ,
[2018-06-07 23:25] LABS: Hematocrit 42.7 % (40-54); Hemoglobin 13.1 g/dl (13.0-16.5); Mean Corp Hgb Conc 30.7 g/gl (32-36); Mean Corpuscular Hgb 27.1 pg (27.0-32.0); Mean Corpuscular Volume 88.4 fL (80-94); Mean Platelet Vol. 10.8 fl (6.2-12.0); Platelet Count 168 K/mm3 (150-450); RBC Distribution Width CV 18.4 % (11.6-14.6); RBC Distribution Width SD 60.2 fl (35.1-43.9); Red Blood Count 4.83 M/mm3 (4.6-6.2); White Blood Count 7.5 K/mm3 (4.4-11.0)
[2018-06-07 23:26] LABS: Scan Indicated on CBC? Y/N NO
[2018-06-07 23:26] LABS: Bedside Glucose 90 mg/dL (70-110)
[2018-06-07 23:39] LABS: Anion Gap 8 (5-15); BUN 24 mg/dL (7-18); BUN/Creat Ratio 17.6 RATIO (10-20); Calcium,Total 8.5 mg/dL (8.5-10.1); Chloride 102 mmol/L (98-107); Creatinine, Serum 1.36 mg/dL (0.70-1.30); EST Glomerular Filtration Rate 55 mL/min (>60); Est Glom Filt Rate - Afr Amer 67 mL/min (>60); Estimated Creatinine Clearance 55.47 ml/min; Glucose 93 mg/dL (74-106); Potassium 4.2 mmol/L (3.5-5.1); Sodium Level 140 mmol/L (136-145)
[2018-06-08] VITALS (16 sets, daily range): BP systolic 97–112; BP diastolic 57–69; PULSE 70–71; RESP 14–18; TEMP 36.4–36.9; O2SAT 93–97
--- NOTE | 2018-06-08 00:37 | EKG12_ITS ---
Test Reason : ADMITTING CP Blood Pressure : / mmHG Vent. Rate : 070 BPM Atrial Rate : 071 BPM P-R Int : 226 ms QRS Dur : 194 ms QT Int : 514 ms P-R-T Axes : 148 -65 086 degrees QTc Int : 555 ms AV dual-paced rhythm with prolonged AV conduction Biventricular pacemaker detected Abnormal ECG When compared with ECG of 05-JUN-2018 16:06, MANUAL COMPARISON REQUIRED, DATA IS UNCONFIRMED Confirmed by WEST PLASCENCIA, NORMAN ([id number]), editorial clerk DORIAN HENDRICKSON ([id number]) on 06/11/2018 10:26:45 AM Referred By: STEFFANIE Confirmed By:NORMAN DODSON MD
[2018-06-08 02:38] LABS: Color, Urine Yellow (Yellow); Glucose, Dipstick Normal (Normal); Ketone-Dipstick Negative (Negative); Leukocyte Esterase-Dipstick Negative /ul (Negative); Nitrite-Dipstick Negative (Negative); Occult Blood-Urine 10 /ul (Negative); Protein-Dipstick Negative (Negative); Specific Gravity, Urine 1.015 (1.002-1.030); Urine Bilirubin Dipstick Negative (Negative); Urine Clarity Clear (Clear); Urine Urobilinogen Normal (Normal)
[2018-06-08 06:41] LABS: Hematocrit 41.6 % (40-54); Hemoglobin 12.7 g/dl (13.0-16.5)
[2018-06-08 06:56] LABS: Anion Gap 7 (5-15); BUN 23 mg/dL (7-18); Calcium,Total 8.3 mg/dL (8.5-10.1); Chloride 104 mmol/L (98-107); Creatinine, Serum 1.35 mg/dL (0.70-1.30); EST Glomerular Filtration Rate 55 mL/min (>60); Est Glom Filt Rate - Afr Amer 67 mL/min (>60); Estimated Creatinine Clearance 55.88 ml/min; Glucose 89 mg/dL (74-106); Potassium 4.1 mmol/L (3.5-5.1); Sodium Level 141 mmol/L (136-145)
--- NOTE | 2018-06-08 07:09 | NURSING ---
Last evening, pt was acting very lethargic. This RN called the jute bag clipper to the bedside to assess pt. jute bag clipper called LOG CARRIER OPERATOR. MD and other staff members to bedside. MD ordered head CT, EKG, CXR, and labs. See results.
--- NOTE | 2018-06-08 08:49 | CT_ITS ---
STUDY: CTA CHEST REASON FOR EXAM: Male, 72 years old. Dyspnea. Possible pulmonary and was in. RADIATION DOSAGE (If Supplied By Facility): CTDIvol = ( 21.71 ) mGy, DLP = ( 796.45 ) mGycm TECHNIQUE: The examination was performed with the intravenous administration of 100 ml of Isovue 370 contrast material. Post-processing of the angiographic images was performed, with multiplanar reformation and 3D reconstruction. Individualized dose optimization techniques were used for this CT. COMPARISON: Comparison is made with prior chest radiograph dated June 07, 2018. FINDINGS: Small bilateral axillary lymph nodes. A left-sided ICD is seen. There are several small intraluminal filling defects in branches of the right interlobar artery. This is in keeping with the pulmonary emboli. There is atherosclerotic calcification of the aortic arch with tortuosity. There is no demonstrated aortic dissection. Normal heart and pericardium. Normal mediastinum. Normal hilar regions. Normal visualized trachea and bronchi. There is elevation of the right hemidiaphragm. There is evidence of infiltration in the posterior medial segment of the right lower lobe. A calcified granuloma is seen in the right lobe as well. Mild increased markings in the lateral aspect of the right middle lobe. Normal pleura. Normal chest wall structures. There are degenerative changes of thoracic spine. There is a 9 mm cyst in the upper pole of the right kidney. The patient is status post cholecystectomy. Calcified splenic granulomas. CT/CTA Chest W/WO Contrast IMPRESSION: Several small intraluminal filling defects in branches of the right interlobar artery in keeping with pulmonary embolism. Infiltration in the posterior segment of the right lower lobe. Electronically Signed: Riaz Dean MD at 9:57 EST Tel [phone], Service support ,
--- NOTE | 2018-06-08 08:59 | PN.CARD_ITS ---
Subjectve: The patient was reported as being lethargic yesterday evening. He underwent evaluation by the hospital staff. This included laboratory studies, chest x- ray, and a brain CT scan. There were no acute findings reported. He was subsequently reported as being awake and alert and interactive. This morning he appears to be up out of bed sitting in his chair. He appears to be interactive and responding to verbal stimuli appropriately. He continues to note vague chest discomfort and the sensation of dyspnea. Objective: Vital Signs Temp Pulse Resp BP Pulse Ox 98.5 F 70 17 112/69 96 06/08/18 04:34 06/08/18 07:13 06/08/18 04:34 06/08/18 04:34 06/08/18 04:34 Oxygen Flow Rate (L/min) 3 Oxygen Delivery Method Nasal Cannula Weight: 269 lb 13.533 oz Body Mass Index (BMI) 36.6 Intake and Output for Last 24 Hours 06/06/18 06/07/18 06/08/18 23:59 23:59 23:59 Intake Total 1400 / 1400 1906 / 1906 279 / 279 Output Total 2725 / 2725 1825 / 1825 260 / 260 Balance -1325 / -1325 81 / 81 General: Awake, Alert, Oriented x 3, Cooperative, No Acute Distress, Obese HEENT: Atraumatic, Normocephalic, PERRL, EOMI, Sclera Non Icteric Oral: Moist Mucosa Neck: Supple, Good ROM, No JVD Lungs: Expiratory Wheezes-Bernard Cardiovascular: Regular Rhythm, Normal S1, Normal S2 Abdomen: Bowel Sounds Present, Soft, Non Tender Extremities: Trace RLE Edema, Trace LLE Edema Neurological: No Focal Motor or Sensory Deficit Psych/Mental Status: Appropriate 06/07/18 23:12: WBC 7.5, RBC 4.83, Hgb 13.1, Hct 42.7, MCV 88.4, MCH 27.1, MCHC 30.7 L, RDW 18.4 H, RDW Differential 60.2 H, Plt Count 168, MPV 10.8 06/07/18 23:12: Sodium 140, Potassium 4.2, Chloride 102, Carbon Dioxide 30.0, Anion Gap 8, BUN 24 H, Creatinine 1.36 H, Est GFR (MDRD) Af Amer 67, Est GFR (MDRD) Non-Af 55 L, BUN/Creatinine Ratio 17.6, Glucose 93, Calcium 8.5 06/08/18 02:07: Urine Color Yellow, Urine Clarity Clear, Urine pH 6.0, Ur Specific [place] 1.015, Urine Protein Negative, Urine Glucose (UA) Normal, Urine Ketones Negative, Urine Occult Blood 10 H, Urine Nitrite Negative, Urine Bilirubin Negative, Urine Urobilinogen Normal, Ur Leukocyte Esterase Negative 06/08/18 06:10: Sodium 141, Potassium 4.1, Chloride 104, Carbon Dioxide 30.0, Anion Gap 7, BUN 23 H, Creatinine 1.35 H, Est GFR (MDRD) Af Amer 67, Est GFR (MDRD) Non-Af 55 L, BUN/Creatinine Ratio 17.0, Glucose 89, Calcium 8.3 L 06/08/18 06:10: Hgb 12.7 L, Hct 41.6 Rhythm: Electronic ventricular paced rhythm Medical Necessity - Tobacco Use Smoking Status: Former smoker Tobacco Use: Non-smoker Assessment/Plan 1. Chest pain/shortness of breath The patient has undergone cardiovascular evaluation with diagnostic cardiac catheterization. He appears to have angiographically normal-appearing coronary arteries. Thus his chest pain appears to be non-CAD related. He did undergo lower extremity noninvasive studies yesterday which were considered negative for DVT. However he continues with concerns of chest discomfort and dyspnea. Thus it may be reasonable to proceed with a chest CT scan to further evaluate for any obvious great vessel disease and/or thromboembolic disease such as pulmonary emboli that may explain his symptoms, etc. 2. Indeterminate troponin I level It appears his indeterminate troponins are not related angiographically significant CAD as his coronary angiogram did not demonstrate any obvious angiographically significant CAD. Thus this may be related to a type II event involving his non-CAD related cardiomyopathy. The same time he can be evaluated for other etiologies such as thromboembolic disease such as PE to explain his symptoms and his indeterminate troponin I levels as well as his d-dimer level. 3. 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 He states he is undergone diagnostic cardiac catheterization x2 in the past which have demonstrated no underlying CAD. At the present time he needs to continue to be monitored. He will need to continue medical management as deemed appropriate. This may include agents such as beta blockers, diuretics, afterload reducing agents, etc. 4. Chronic systolic CHF The patient appears to have a history compatible with chronic systolic CHF. He may be having an element of acute on chronic symptoms at this time. He will continue medical management. This will also include diuretic therapy with furosemide. He will proceed with further evaluation as noted above. 5. Atrial fibrillation The patient has a history of atrial fibrillation. He states he has been treated medically. He has been on it appears rate control therapy and anti-arrhythmic therapy and anticoagulant therapy. 6. ICD The patient believes he has a [employer] ICD. He states it was placed because of his weak heart . His ICD was interrogated and appears to be functioning appropriately. 7. Hyperlipidemia He will continue lipid-lowering therapy as deemed appropriate. 8. Hypertension His blood pressure can be monitored. His medications can be adjusted as needed. Comment: The patient's case has been discussed and reviewed with the patient and his spouse. This note was generated with [email or web address] dictation software. It may contain incorrect words, spelling, and punctuation that were not noted in checking the note before signing.
[2018-06-08 10:29] LABS: Digoxin Level 1.29 ng/mL (0.80-2.00)
--- NOTE | 2018-06-08 10:38 | PCM.PN.HOSP ---
Patient Problems: Active and Suspected Problems (Last Updated 06/05/18 @ 19:16 by Krishna Mckenna DO) Chest pain (Acute) Elevated troponin (Acute) Shortness of breath (Acute) Subjective: Patient seen and examined. He was quite lethargic after cardiac cath yesterday. This was thought to be medication induced but he ended up having a CT of the brain which was negative. He is much more alert this morning. Chest pain hasnt recurred. He denies any fever chills, palpitations or dizziness or lightheadedness, abdominal pain, diarrhea or vomiting. Labs and vitals reviewed. Duplex of his lower extremities was negative for PE yesterday. He is due to have CTPE today. Vitals/I&O's: Vital Signs Temp Pulse Resp BP Pulse Ox 98.5 F 70 17 112/69 97 06/08/18 04:34 06/08/18 07:13 06/08/18 04:34 06/08/18 04:34 06/08/18 07:34 Oxygen Flow Rate (L/min) 3 Oxygen Delivery Method Nasal Cannula Weight: 269 lb 13.533 oz Body Mass Index (BMI) 36.6 Intake and Output for Last 24 Hours 06/06/18 06/07/18 06/08/18 23:59 23:59 23:59 Intake Total 1400 / 1400 1906 / 1906 279 / 279 Output Total 2725 / 2725 1825 / 1825 260 / 260 Balance -1325 / -1325 81 / 81 General: Alert, Oriented x3, Cooperative, No apparent distress HEENT: Atraumatic, PERRLA, EOMI, Normocephalic Oral: Moist Mucosa Neck: Supple, No JVD, Negative Carotid Bruits Lungs: Clear to auscultation, Normal air movement, No rhonchi, No wheeze, No rales Cardiovascular: Regular rate, Regular Rhythm, Normal S1, Normal S2, No murmurs Abdomen: Bowel Sounds Present, Soft, Non Tender, Non-Distended, No Hepato-splenomegaly Extremities: No clubbing, No cyanosis, No edema, Capillary Refill Less than 3 Seconds Skin: No rashes, No breakdown Musculoskeletal: No Tenderness to Palpation of Joints or Extremities Lymphatic: No Cervical, Supraclavicular, or Inguinal Adenopathy Neurological: Cranial nerves II-XII grossly intact, Neuro grossly intact, Motor Exam 5/5 strength throughout Psych/Mental Status: Normal Affect, Appropriate Microbiology Past 72 Hours 06/05/18 22:20 Urine, Clean Catch Urine Culture - Preliminary Culture exhibits no growth. Laboratory Results 06/07/18 22:54: POC Glucose 90 06/07/18 23:12: WBC 7.5, RBC 4.83, Hgb 13.1, Hct 42.7, MCV 88.4, MCH 27.1, MCHC 30.7 L, RDW 18.4 H, RDW Differential 60.2 H, Plt Count 168, MPV 10.8 06/07/18 23:12: Sodium 140, Potassium 4.2, Chloride 102, Carbon Dioxide 30.0, Anion Gap 8, BUN 24 H, Creatinine 1.36 H, Estim Creat Clear Calc 55.47, Est GFR (MDRD) Af Amer 67, Est GFR (MDRD) Non-Af 55 L, BUN/Creatinine Ratio 17.6, Glucose 93, Calcium 8.5 06/07/18 23:12: Ammonia 32.0 06/08/18 02:07: Urine Color Yellow, Urine Clarity Clear, Urine pH 6.0, Ur Specific [place] 1.015, Urine Protein Negative, Urine Glucose (UA) Normal, Urine Ketones Negative, Urine Occult Blood 10 H, Urine Nitrite Negative, Urine Bilirubin Negative, Urine Urobilinogen Normal, Ur Leukocyte Esterase Negative 06/08/18 06:10: Sodium 141, Potassium 4.1, Chloride 104, Carbon Dioxide 30.0, Anion Gap 7, BUN 23 H, Creatinine 1.35 H, Estim Creat Clear Calc 55.88, Est GFR (MDRD) Af Amer 67, Est GFR (MDRD) Non-Af 55 L, BUN/Creatinine Ratio 17.0, Glucose 89, Calcium 8.3 L 06/08/18 06:10: Hgb 12.7 L, Hct 41.6 06/08/18 09:20: Digoxin 1.29 Diagnostic Data Chest X-Ray 06/07/18 23:05 IMPRESSION: No acute cardiopulmonary findings or changes. Stable scarring at the right lung base and an elevated right diaphragm. Continued cardiomegaly. ICD unchanged. Electronically Signed: Lucinda Mora MD at 23:28 EST , Service support , Brain CT 06/07/18 23:20 IMPRESSION: Normal unenhanced CT scan of the brain. Small retention cyst right maxillary sinus. Electronically Signed: Lucinda Mora MD at 23:40 EST , Service support , Chest CTA 06/08/18 08:49 IMPRESSION: Several small intraluminal filling defects in branches of the right interlobar artery in keeping with pulmonary embolism. Infiltration in the posterior segment of the right lower lobe. Electronically Signed: Riaz Dean MD at 9:57 EST Tel [phone], Service support , Current Medications Acetaminophen (Tylenol) 650 mg PO Q4H PRN PRN PRN Reason: PAIN Last Admin: 06/07/18 22:46 Dose: 650 mg Acetaminophen (Tylenol) 650 mg PO Q6H PRN PRN PRN Reason: Mild Pain (1-3)/Temp > 100.7 F Amiodarone HCl (Cordarone) 200 mg PO BID [facility] Last Admin: 06/07/18 22:45 Dose: 200 mg Aspirin (Ecotrin) 81 mg PO DAILY@0800 [facility] Last Admin: 06/07/18 05:55 Dose: 81 mg Atorvastatin Calcium (Lipitor) 40 mg PO QHS [facility] Last Admin: 06/07/18 22:27 Dose: 40 mg Digoxin (Lanoxin) 125 mcg PO DAILY@1200 [facility] Last Admin: 06/07/18 11:07 Dose: 125 mcg Furosemide (Lasix) 40 mg IV DAILY [facility] Last Admin: 06/07/18 09:50 Dose: 40 mg Heparin Sodium (Porcine) (Heparin Na) 9,500 unit IV BOLUS ONE Stop: 06/08/18 11:01 Heparin Sodium (Porcine) (Heparin Na) 0 unit IV UD PRN; Protocol Sodium Chloride () 1,000 mls @ 15 mls/hr IV .Q48H [facility] Last Admin: 06/07/18 05:56 Dose: 15 mls/hr Sodium Chloride () 1,000 mls @ 50 mls/hr IV .Q20H [facility] Last Admin: 06/07/18 18:43 Dose: 50 mls/hr Heparin Sodium/Dextrose () 25,000 units in 250 mls @ 16 mls/hr IV .[id number] [facility]; Protocol Isosorbide Dinitrate (Isordil) 5 mg PO TID [facility] Magnesium Hydroxide (Milk Of Magnesia) 30 ml PO DAILY PRN PRN Reason: Constipation Last Admin: 06/06/18 08:10 Dose: 30 ml Metoprolol Tartrate (Lopressor (Beta Gladys)) 50 mg PO BID [facility] Last Admin: 06/07/18 22:45 Dose: 50 mg Morphine Sulfate () 2 - 4 mg IV Q4H PRN PRN PRN Reason: MOD-SEVERE PAIN (-03/07) Nitroglycerin (Nitrostat) 0.4 mg SUBLINGUAL Q5M PRN PRN Reason: CHEST PAIN [id number] Ethyl Esters (Lovaza) 1 gm PO BID [facility] Last Admin: 06/07/18 22:27 Dose: 1 gm Ondansetron HCl (Zofran) 4 mg IV Q8H PRN PRN PRN Reason: NAUSEA Oxycodone HCl (Oxyir) 5 - 10 mg PO Q4H PRN PRN PRN Reason: MOD-SEVERE PAIN (-03/07) Pantoprazole Sodium (Protonix) 40 mg PO BID [facility] Last Admin: 06/07/18 22:27 Dose: 40 mg Spironolactone (Aldactone) 12.5 mg PO DAILY [facility] Last Admin: 06/07/18 09:49 Dose: 12.5 mg Tamsulosin HCl (Flomax) 0.4 mg PO DAILY@1730 [facility] Last Admin: 06/07/18 16:33 Dose: 0.4 mg Warfarin Sodium (Coumadin (Pbkc)) 8 mg PO X1 ONE Stop: 06/08/18 10:46 Medical Necessity - Tobacco Use Smoking Status: Former smoker Tobacco Use: Non-smoker Assessment/Plan All Active Problems (Last Updated 06/05/18 @ 19:16 by Krishna Mckenna DO) Chest pain (Acute) Elevated troponin (Acute) Shortness of breath (Acute) 1. NSTEMI troponins were mildly elevated: 0.114->0.150->0.147 2D echo: moderately dilated LV and moderate global LVSF with EF of 35%, mild global RV systolic dysfunction. LA moderately enlarged. RVSP is 31mmHg. ICD pacers in right atrium and right ventricle. cardiac cath today: normal coronaries on aspirin, statin and metoprolol Duplex of LE was negative. CTPE showed several small intraluminal filling defects in branches of right interlobar artery in keeping with PE. Infiltration in posterior segment of right lower lobe. patient has been on coumadin, and still developed PE; he had had interruptions in taking his coumadin o/a of urological procedures for epididymitis. THis is more likely the cause of the PE, not coumadin failure. will therefore resume on coumadin, and bridge with IV heparin. received one dose of coumadin 8mg yesterday. 2. PE: diagnosed as under 1. Management as under 1. 3. Afib: rate and rhythm controlled. On amiodarone, metoprolol, digoxin and coumadin. will monitor INR 4. Acute on chronic systolic CHF: BNP was 256.2. Has a history of CHF. On diuretics. output over last 24 hours was 2.725L; in negative balance by 1.85L 2D echo; EF of 35% has ICD in place 5. Left groin pain chronic. Follows up with urology for epididymitis. UA showed no evidence of UTI to follow up with urology on discharge 6. Hypertnension: on metoprolol. Controlled 7. Hyperlipidemia: on statin. 8. Back pain: chronic. to follow up with his spine surgeon, Dr Gray, on discharge. Had spine surgery in December 2017. 9. ?HALEY: Cr was 1.35 on admisison, is1.35. Baseline not available. will monitor. DVT prophylaxis: on coumadin, and bridging with heparin Code Visit Inpatient E&M: [id number] [facility] L3
--- NOTE | 2018-06-08 10:42 | PN_ITS ---
Patient Problems: Active and Suspected Problems (Last Updated 06/05/18 @ 19:16 by Krishna Mckenna DO) Chest pain (Acute) Elevated troponin (Acute) Shortness of breath (Acute) Subjective: Patient seen and examined. He was quite lethargic after cardiac cath yesterday. This was thought to be medication induced but he ended up having a CT of the brain which was negative. He is much more alert this morning. Chest pain hasnt recurred. He denies any fever chills, palpitations or dizziness or lightheadedness, abdominal pain, diarrhea or vomiting. Labs and vitals reviewed. Duplex of his lower extremities was negative for PE yesterday. He is due to have CTPE today. Vitals/I&O's: Vital Signs Temp Pulse Resp BP Pulse Ox 98.5 F 70 17 112/69 97 06/08/18 04:34 06/08/18 07:13 06/08/18 04:34 06/08/18 04:34 06/08/18 07:34 Oxygen Flow Rate (L/min) 3 Oxygen Delivery Method Nasal Cannula Weight: 269 lb 13.533 oz Body Mass Index (BMI) 36.6 Intake and Output for Last 24 Hours 06/06/18 06/07/18 06/08/18 23:59 23:59 23:59 Intake Total 1400 / 1400 1906 / 1906 279 / 279 Output Total 2725 / 2725 1825 / 1825 260 / 260 Balance -1325 / -1325 81 / 81 General: Alert, Oriented x3, Cooperative, No apparent distress HEENT: Atraumatic, PERRLA, EOMI, Normocephalic Oral: Moist Mucosa Neck: Supple, No JVD, Negative Carotid Bruits Lungs: Clear to auscultation, Normal air movement, No rhonchi, No wheeze, No rales Cardiovascular: Regular rate, Regular Rhythm, Normal S1, Normal S2, No murmurs Abdomen: Bowel Sounds Present, Soft, Non Tender, Non-Distended, No Hepato- splenomegaly Extremities: No clubbing, No cyanosis, No edema, Capillary Refill Less than 3 Seconds Skin: No rashes, No breakdown Musculoskeletal: No Tenderness to Palpation of Joints or Extremities Lymphatic: No Cervical, Supraclavicular, or Inguinal Adenopathy Neurological: Cranial nerves II-XII grossly intact, Neuro grossly intact, Motor Exam 5/5 strength throughout Psych/Mental Status: Normal Affect, Appropriate Microbiology Past 72 Hours 06/05/18 22:20 Urine, Clean Catch Urine Culture - Preliminary Culture exhibits no growth. Laboratory Results 06/07/18 22:54: POC Glucose 90 06/07/18 23:12: WBC 7.5, RBC 4.83, Hgb 13.1, Hct 42.7, MCV 88.4, MCH 27.1, MCHC 30.7 L, RDW 18.4 H, RDW Differential 60.2 H, Plt Count 168, MPV 10.8 06/07/18 23:12: Sodium 140, Potassium 4.2, Chloride 102, Carbon Dioxide 30.0, Anion Gap 8, BUN 24 H, Creatinine 1.36 H, Estim Creat Clear Calc 55.47, Est GFR (MDRD) Af Amer 67, Est GFR (MDRD) Non-Af 55 L, BUN/Creatinine Ratio 17.6, Glucose 93, Calcium 8.5 06/07/18 23:12: Ammonia 32.0 06/08/18 02:07: Urine Color Yellow, Urine Clarity Clear, Urine pH 6.0, Ur Specific [place] 1.015, Urine Protein Negative, Urine Glucose (UA) Normal, Urine Ketones Negative, Urine Occult Blood 10 H, Urine Nitrite Negative, Urine Bilirubin Negative, Urine Urobilinogen Normal, Ur Leukocyte Esterase Negative 06/08/18 06:10: Sodium 141, Potassium 4.1, Chloride 104, Carbon Dioxide 30.0, Anion Gap 7, BUN 23 H, Creatinine 1.35 H, Estim Creat Clear Calc 55.88, Est GFR (MDRD) Af Amer 67, Est GFR (MDRD) Non-Af 55 L, BUN/Creatinine Ratio 17.0, Glucose 89, Calcium 8.3 L 06/08/18 06:10: Hgb 12.7 L, Hct 41.6 06/08/18 09:20: Digoxin 1.29 Diagnostic Data Chest X-Ray 06/07/18 23:05 IMPRESSION: No acute cardiopulmonary findings or changes. Stable scarring at the right lung base and an elevated right diaphragm. Continued cardiomegaly. ICD unchanged. Electronically Signed: Lucinda Mora MD at 23:28 EST , Service support , Brain CT 06/07/18 23:20 IMPRESSION: Normal unenhanced CT scan of the brain. Small retention cyst right maxillary sinus. Electronically Signed: Lucinda Mora MD at 23:40 EST , Service support , Chest CTA 06/08/18 08:49 IMPRESSION: Several small intraluminal filling defects in branches of the right interlobar artery in keeping with pulmonary embolism. Infiltration in the posterior segment of the right lower lobe. Electronically Signed: Riaz Dean MD at 9:57 EST Tel [phone], Service support , Current Medications Acetaminophen (Tylenol) 650 mg PO Q4H PRN PRN PRN Reason: PAIN Last Admin: 06/07/18 22:46 Dose: 650 mg Acetaminophen (Tylenol) 650 mg PO Q6H PRN PRN PRN Reason: Mild Pain (1-3)/Temp > 100.7 F Amiodarone HCl (Cordarone) 200 mg PO BID [facility] Last Admin: 06/07/18 22:45 Dose: 200 mg Aspirin (Ecotrin) 81 mg PO DAILY@0800 [facility] Last Admin: 06/07/18 05:55 Dose: 81 mg Atorvastatin Calcium (Lipitor) 40 mg PO QHS [facility] Last Admin: 06/07/18 22:27 Dose: 40 mg Digoxin (Lanoxin) 125 mcg PO DAILY@1200 [facility] Last Admin: 06/07/18 11:07 Dose: 125 mcg Furosemide (Lasix) 40 mg IV DAILY [facility] Last Admin: 06/07/18 09:50 Dose: 40 mg Heparin Sodium (Porcine) (Heparin Na) 9,500 unit IV BOLUS ONE Stop: 06/08/18 11:01 Heparin Sodium (Porcine) (Heparin Na) 0 unit IV UD PRN; Protocol Sodium Chloride () 1,000 mls @ 15 mls/hr IV .Q48H [facility] Last Admin: 06/07/18 05:56 Dose: 15 mls/hr Sodium Chloride () 1,000 mls @ 50 mls/hr IV .Q20H [facility] Last Admin: 06/07/18 18:43 Dose: 50 mls/hr Heparin Sodium/Dextrose () 25,000 units in 250 mls @ 16 mls/hr IV .[id number] [facility]; Protocol Isosorbide Dinitrate (Isordil) 5 mg PO TID [facility] Magnesium Hydroxide (Milk Of Magnesia) 30 ml PO DAILY PRN PRN Reason: Constipation Last Admin: 06/06/18 08:10 Dose: 30 ml Metoprolol Tartrate (Lopressor (Beta Gladys)) 50 mg PO BID [facility] Last Admin: 06/07/18 22:45 Dose: 50 mg Morphine Sulfate () 2 - 4 mg IV Q4H PRN PRN PRN Reason: MOD-SEVERE PAIN (-03/07) Nitroglycerin (Nitrostat) 0.4 mg SUBLINGUAL Q5M PRN PRN Reason: CHEST PAIN [id number] Ethyl Esters (Lovaza) 1 gm PO BID [facility] Last Admin: 06/07/18 22:27 Dose: 1 gm Ondansetron HCl (Zofran) 4 mg IV Q8H PRN PRN PRN Reason: NAUSEA Oxycodone HCl (Oxyir) 5 - 10 mg PO Q4H PRN PRN PRN Reason: MOD-SEVERE PAIN (-03/07) Pantoprazole Sodium (Protonix) 40 mg PO BID [facility] Last Admin: 06/07/18 22:27 Dose: 40 mg Spironolactone (Aldactone) 12.5 mg PO DAILY [facility] Last Admin: 06/07/18 09:49 Dose: 12.5 mg Tamsulosin HCl (Flomax) 0.4 mg PO DAILY@1730 [facility] Last Admin: 06/07/18 16:33 Dose: 0.4 mg Warfarin Sodium (Coumadin (Pbkc)) 8 mg PO X1 ONE Stop: 06/08/18 10:46 Medical Necessity - Tobacco Use Smoking Status: Former smoker Tobacco Use: Non-smoker Assessment/Plan All Active Problems (Last Updated 06/05/18 @ 19:16 by Krishna Mckenna DO) Chest pain (Acute) Elevated troponin (Acute) Shortness of breath (Acute) 1. NSTEMI * troponins were mildly elevated: 0.114->0.150->0.147 * 2D echo: moderately dilated LV and moderate global LVSF with EF of 35%, mild global RV systolic dysfunction. LA moderately enlarged. RVSP is 31mmHg. ICD pacers in right atrium and right ventricle. * cardiac cath today: normal coronaries * on aspirin, statin and metoprolol * Duplex of LE was negative. * CTPE showed several small intraluminal filling defects in branches of right interlobar artery in keeping with PE. Infiltration in posterior segment of right lower lobe. * patient has been on coumadin, and still developed PE; he had had interruptions in taking his coumadin o/a of urological procedures for epididymitis. THis is more likely the cause of the PE, not coumadin failure. * will therefore resume on coumadin, and bridge with IV heparin. * received one dose of coumadin 8mg yesterday. * 2. PE: diagnosed as under 1. Management as under 1. 3. Afib: * rate and rhythm controlled. * On amiodarone, metoprolol, digoxin and coumadin. * will monitor INR * 4. Acute on chronic systolic CHF: * BNP was 256.2. Has a history of CHF. * On diuretics. output over last 24 hours was 2.725L; in negative balance by 1.85L * 2D echo; EF of 35% * has ICD in place * * 5. Left groin pain * chronic. Follows up with urology for epididymitis. * UA showed no evidence of UTI * to follow up with urology on discharge * 6. Hypertnension: on metoprolol. Controlled 7. Hyperlipidemia: on statin. 8. Back pain: chronic. to follow up with his spine surgeon, Dr Gray, on discharge. Had spine surgery in December 2017. 9. ?HALEY: Cr was 1.35 on admisison, is1.35. Baseline not available. will monitor. DVT prophylaxis: on coumadin, and bridging with heparin Code Visit Inpatient E&M: [id number] [facility] H[facility] L3
[2018-06-08] MEDS: Amiodarone 200 MG Tablet PO ×2 (11:09→21:36)
[2018-06-08] MEDS: Omega-3 Acid Ethyl Esters 1 GM Capsule PO ×2 (11:09→21:36)
[2018-06-08] MEDS: Aspirin E.C. 81 MG Tablet PO (11:09)
[2018-06-08] MEDS: Metoprolol Tartrate 50 MG Tablet PO (11:09)
[2018-06-08] MEDS: Spironolactone 25 MG Tablet 12.5 MG PO (11:09)
[2018-06-08] MEDS: Pantoprazole Sodium 40 MG Tablet PO ×2 (11:09→21:36)
[2018-06-08] MEDS: Furosemide 40 MG/4 ML Vial IV (11:09)
[2018-06-08] MEDS: SACUBITRIL/VALSARTAN 24/26 MG TABLET 1 EACH PO (11:12)
[2018-06-08] MEDS: Heparin Injection (Vial) 5,000 UNIT/ML VIAL 9500 UNIT IV (11:16)
[2018-06-08] MEDS: Digoxin 125 MCG Tablet PO (11:18)
[2018-06-08] MEDS: HEPARIN/D5w 25,000 UNITS 25,000 UNITS/250 ML IV.SOLN. 16 UNITS IV (11:27)
[2018-06-08 11:29] LABS: International Normalized Ratio 1.6; Prothrombin Time (Protime)PT. 18.6 SECONDS (11.7-14.9)
[2018-06-08 11:30] LABS: Partial Thromboplast Time 30.3 Seconds (24.1-36.2)
[2018-06-08 18:36] LABS: Partial Thromboplast Time 191.1 Seconds (24.1-36.2)
[2018-06-08] MEDS: Tamsulosin HCl 0.4 MG Capsule PO (18:41)
[2018-06-08] MEDS: Atorvastatin Calcium 40 MG Tablet PO (21:36)
[2018-06-09] VITALS (7 sets, daily range): BP systolic 106–128; BP diastolic 62–69; PULSE 70; RESP 18; TEMP 36.8–37.2; O2SAT 91–95
[2018-06-09] MEDS: Isosorbide DN 10 MG Tablet 5 MG PO (06:04)
[2018-06-09] MEDS: HEPARIN/D5w 25,000 UNITS 25,000 UNITS/250 ML IV.SOLN. 16 UNITS IV (06:05)
[2018-06-09 07:19] LABS: Anion Gap 8 (5-15); BUN 24 mg/dL (7-18); Calcium,Total 8.5 mg/dL (8.5-10.1); Chloride 103 mmol/L (98-107); EST Glomerular Filtration Rate 49 mL/min (>60); Est Glom Filt Rate - Afr Amer 59 mL/min (>60); Glucose 102 mg/dL (74-106); Potassium 3.9 mmol/L (3.5-5.1); Sodium Level 141 mmol/L (136-145)
[2018-06-09 07:37] LABS: Prothrombin Time (Protime)PT. 22.9 SECONDS (11.7-14.9)
[2018-06-09 07:44] LABS: Partial Thromboplast Time 67.7 Seconds (24.1-36.2)
[2018-06-09] MEDS: Omega-3 Acid Ethyl Esters 1 GM Capsule PO (09:18)
[2018-06-09] MEDS: Pantoprazole Sodium 40 MG Tablet PO (09:24)
[2018-06-09] MEDS: Amiodarone 200 MG Tablet PO (09:25)
[2018-06-09] MEDS: Furosemide 40 MG/4 ML Vial IV (09:25)
[2018-06-09] MEDS: Metoprolol Tartrate 50 MG Tablet PO (09:25)
[2018-06-09] MEDS: Aspirin E.C. 81 MG Tablet PO (09:25)
[2018-06-09] MEDS: SACUBITRIL/VALSARTAN 24/26 MG TABLET 1 EACH PO (09:25)
[2018-06-09] MEDS: Spironolactone 25 MG Tablet 12.5 MG PO (09:25)
--- NOTE | 2018-06-09 11:16 | PCM.DC ---
- Discharge Diagnoses Current Active Problems: Current Active and Chronic Problems (Last Updated 06/05/18 @ 19:16 by Krishna Mckenna DO) Chest pain (Acute) Elevated troponin (Acute) Shortness of breath (Acute) Cardiomyopathy (Chronic) Atrial fibrillation (Chronic) ICD (implantable cardioverter-defibrillator) in place (Chronic) HTN (hypertension) (Chronic) HLD (hyperlipidemia) (Chronic) CHF (congestive heart failure) (Chronic) You will use the following diet at home:: Cardiac Your food should be the consistency of: Regular Your liquids should be the consistency of: Regular/Thin Weight Bearing Status: Weight bearing as tolerated Call your doctor if you observe: Shortness of breath, Dizziness, Fainting spells, Swelling in the ankles, Chest pain Instructions: Pulmonary Embolism Additional Instructions: please follow up with PCP on Monday06/11/18 for repeat INR and for coumadin dose to be adjusted as per INR; goal is for INR of 2 to 3. Allergies/Adverse Reactions: Allergies amoxicillin Allergy (Verified 06/05/18 19:21) Swelling tramadol Allergy (Verified 06/05/18 19:21) Swelling Medications to take at Discharge Acetaminophen [Tylenol] 650 mg PO Q4H PRN PRN 06/05/18 Aspirin E.C. [Ecotrin] 81 mg PO DAILY@0800 06/05/18 Atorvastatin Calcium [Lipitor] 10 mg PO QHS 06/05/18 Co Q10 200 [Co Q-10] 100 mg PO BID 06/05/18 Digoxin 125 mcg PO DAILY 06/05/18 Furosemide [Lasix] 20 mg PO DAILY 06/05/18 Metoprolol Tartrate 50 mg PO BID 06/05/18 [place]-3 Fatty Acids [[place]-3] 1,000 mg PO BID 06/05/18 Pantoprazole Sodium [Protonix] 40 mg PO BID 06/05/18 Spironolactone 12.5 mg PO DAILY 06/05/18 Tamsulosin HCl 0.4 mg PO DAILY 06/05/18 Amiodarone HCl [Cordarone] 200 mg PO BID #60 tab 06/09/18 Isosorbide DN [Isordil] 5 mg PO TID #90 tab 06/09/18 Sacubitril/Valsartan 24/26 mg [Entresto 24 mg-26 mg Tablet] 1 ea PO BID #60 tab 06/09/18 Warfarin Sodium [Coumadin] 5 mg PO DAILY #30 tab 06/09/18 The following prescriptions were given: Warfarin Sodium [Coumadin] 5 mg PO DAILY #30 tab Amiodarone HCl [Cordarone] 200 mg PO BID #60 tab Sacubitril/Valsartan 24/26 mg [Entresto 24 mg-26 mg Tablet] 1 ea PO BID #60 tab Isosorbide DN [Isordil] 5 mg PO TID #90 tab Primary Care Physician: Ayo Burns [Primary Care Provider] - Please follow up with your Primary Care Physician in: one week Test Results: Test results from this visit will be discussed in further detail at your follow-up appointment, if applicable. Please Follow Up With: Danial Jensen MD When: one week Proposed Discharge Date: 06/09/18
--- NOTE | 2018-06-09 11:18 | PCM.DC.SUM ---
Discharge Date and Diagnosis Date of Admission: 06/05/18 Date of Discharge: 06/09/18 - Primary Discharge Diagnosis Active and Suspected Problems (Last Updated 06/05/18 @ 19:16 by Krishna Mckenna DO) Chest pain (Acute) Elevated troponin (Acute) Shortness of breath (Acute) pulmonary embolism - Secondary Discharge Diagnosis Chronic Problems (Last Updated 06/05/18 @ 19:16 by Krishna Mckenna DO) Cardiomyopathy (Chronic) Atrial fibrillation (Chronic) ICD (implantable cardioverter-defibrillator) in place (Chronic) HTN (hypertension) (Chronic) HLD (hyperlipidemia) (Chronic) CHF (congestive heart failure) (Chronic) Hospital Course and Treatment Imaging Results: Diagnostic Data Chest X-Ray 06/07/18 23:05 IMPRESSION: No acute cardiopulmonary findings or changes. Stable scarring at the right lung base and an elevated right diaphragm. Continued cardiomegaly. ICD unchanged. Electronically Signed: Lucinda Mora MD at 23:28 EST , Service support , Brain CT 06/07/18 23:20 IMPRESSION: Normal unenhanced CT scan of the brain. Small retention cyst right maxillary sinus. Electronically Signed: Lucinda Mora MD at 23:40 EST , Service support , Chest CTA 06/08/18 08:49 IMPRESSION: Several small intraluminal filling defects in branches of the right interlobar artery in keeping with pulmonary embolism. Infiltration in the posterior segment of the right lower lobe. Electronically Signed: Riaz Dena MD at 9:57 EST Tel [phone], Service support , cardiology-Dr Jensen Operations: None Procedures: Cardiac catheterization Summary of Care Provided: The patient is a 72 year old M with a past medical history of A. fib status post pacemaker and BPH. He was admitted with a complaint of worsening shortness of breath with associated chest pain for several days prior to admission. He had a d-dimer of 0.52 which fell in the normal range for his age and a BNP of 256 as well as troponin of 0.144. Patient had been following up with a senior sales administrator in [place] but senior sales administrator moved away and patient did not get reestablished with a new senior sales administrator. He also complained of severe back pain which have been going ongoing for several months since he had back surgery in the summer. He also complained of groin pain and had been diagnosed with epididymitis and was following up with urology. Patient was admitted to be managed for chest pain to rule out ACS. Initial troponin was 0.114 which trended up to a peak of 0.150. He was put on aspirin and statin and metoprolol. He also remained on amiodarone and digoxin as well as Coumadin. Of note, his Coumadin dosage had been interrupted several times on account of his surgery and also because he was on antibiotics which interfered with Coumadin. 2D echo done showed moderately dilated left ventricle and moderate global left ventricular systolic function with EF of 35% and mild global right ventricular systolic dysfunction. RVSP was 31 mmHg. His BNP was 256.2 and so he was also managed for acute on chronic systolic heart failure was diuresed with IV Lasix. He had a cardiac cath which showed normal coronaries. Duplex of LEs was negative for any DVT. As further workup, CT angiogram was ordered which showed several small intraluminal filling defects in branches of the right interlobar artery consistent with PE. He was started on heparin drip was resumed. Patient became more confused after she had a cardiac cath and his confusion persisted. He had a brain CT which showed no acute intracranial pathology and it is likely that the confusion was due to medications that he received to sedate him for the cardiac cath. INR on day of discharge was 2. Patient's Coumadin dose was therefore increased to 5 mg daily from 2 mg daily which is what he had been on at home for A. fib. He is to follow-up with his primary care doctor on 06/11/18 for repeat INR for Coumadin dose to be adjusted as needed. He is to follow-up with his primary care doctor and with his senior sales administrator. INR to be monitored by primary care doctor for dose adjustment of Coumadin as needed. Is also to follow-up with urology for his chronic left groin pain. Patient seen and examined prior to discharge. He had no complaints and felt well. He denied any fever, any chills, any palpitations, any dizziness or lightheadedness, any abdominal pain, any diarrhea vomiting. Review of systems is otherwise negative. Labs and vitals reviewed. Home medications reviewed and reconciled. On examination: Vital Signs Height 6 ft Weight: 270 lb 4.587 oz Weight in Pounds 270.3 lbs Pulse Ox 94 Temperature 98.3 F Pulse Rate 70 Respiratory Rate 18 Blood Pressure [BP] 97/62 Blood Pressure 127/66 Blood Pressure Position [BP] Semi-Fowlers Blood Pressure Position Semi-Fowlers General: Alert, Oriented x3, Cooperative, No apparent distress HEENT: Atraumatic, PERRLA, EOMI, Normocephalic Oral: Moist Mucosa Neck: Supple, No JVD, Negative Carotid Bruits Lungs: Clear to auscultation, Normal air movement, No rhonchi, No wheeze, No rales Cardiovascular: Regular rate, Regular Rhythm, Normal S1, Normal S2, No murmurs Abdomen: Bowel Sounds Present, Soft, Non Tender, Non-Distended, No Hepato-splenomegaly Extremities: No clubbing, No cyanosis, No edema, Capillary Refill Less than 3 Seconds Skin: No rashes, No breakdown Musculoskeletal: No Tenderness to Palpation of Joints or Extremities Lymphatic: No Cervical, Supraclavicular, or Inguinal Adenopathy Neurological: Cranial nerves II-XII grossly intact, Neuro grossly intact, Motor Exam 5/5 strength throughout Psych/Mental Status: Normal Affect, Appropriate Plan discussed with patient and his and they expressed understanding. [] - Physical Exam Vital Signs Temp Pulse Resp BP Pulse Ox 98.3 F 70 18 127/66 H 94 06/09/18 09:15 06/09/18 09:25 06/09/18 09:15 06/09/18 09:15 06/09/18 09:15 Oxygen Flow Rate (L/min) 3 Oxygen Delivery Method Room Air Weight: 270 lb 4.587 oz Body Mass Index (BMI) 36.6 Intake and Output for Last 24 Hours 06/07/18 06/08/18 06/09/18 23:59 23:59 23:59 Intake Total 1906 / 1906 1399 / 1399 172 / 172 Output Total 1825 / 1825 1610 / 1610 Balance 81 / 81 -211 / -211 172 / 172 Microbiology Past 72 Hours 06/05/18 22:20 Urine Culture - Final Urine, Clean Catch Mixed Gram Positive Organisms Laboratory Tests Past 24 Hrs 06/08/18 06/08/18 06/09/18 11:14 17:36 00:56 PT 18.6 H INR 1.6 APTT 30.3 191.1 H* 72.0 H Sodium Potassium Chloride Carbon Dioxide Anion Gap BUN Creatinine Estim Creat Clear Calc Est GFR (MDRD) Af Amer Est GFR (MDRD) Non-Af BUN/Creatinine Ratio Glucose Calcium 06/09/18 06/09/18 06/09/18 06:29 06:29 06:29 PT 22.9 H INR 2.0 APTT 67.7 H Sodium 141 Potassium 3.9 Chloride 103 Carbon Dioxide 30.0 Anion Gap 8 BUN 24 H Creatinine 1.50 H Estim Creat Clear Calc 50.30 Est GFR (MDRD) Af Amer 59 L Est GFR (MDRD) Non-Af 49 L BUN/Creatinine Ratio 16.0 Glucose 102 Calcium 8.5 Discharge Diet: Low fat/ Low Cholesterol Weight Bearing Status: Weight bearing as tolerated Call your doctor if you observe: Shortness of breath, Dizziness, Fainting spells, Swelling in the ankles, Chest pain Home Medications: Medications to take at Discharge Acetaminophen [Tylenol] 650 mg PO Q4H PRN PRN 06/05/18 Aspirin E.C. [Ecotrin] 81 mg PO DAILY@0800 06/05/18 Atorvastatin Calcium [Lipitor] 10 mg PO QHS 06/05/18 Co Q10 200 [Co Q-10] 100 mg PO BID 06/05/18 Digoxin 125 mcg PO DAILY 06/05/18 Furosemide [Lasix] 20 mg PO DAILY 06/05/18 Metoprolol Tartrate 50 mg PO BID 06/05/18 [place]-3 Fatty Acids [[place]-3] 1,000 mg PO BID 06/05/18 Pantoprazole Sodium [Protonix] 40 mg PO BID 06/05/18 Spironolactone 12.5 mg PO DAILY 06/05/18 Tamsulosin HCl 0.4 mg PO DAILY 06/05/18 Amiodarone HCl [Cordarone] 200 mg PO BID #60 tab 06/09/18 Isosorbide DN [Isordil] 5 mg PO TID #90 tab 06/09/18 Sacubitril/Valsartan 24/26 mg [Entresto 24 mg-26 mg Tablet] 1 ea PO BID #60 tab 06/09/18 Warfarin Sodium [Coumadin] 5 mg PO DAILY #30 tab 06/09/18 Following Prescrptions Were Given to Patient: Warfarin Sodium [Coumadin] 5 mg PO DAILY #30 tab Amiodarone HCl [Cordarone] 200 mg PO BID #60 tab Sacubitril/Valsartan 24/26 mg [Entresto 24 mg-26 mg Tablet] 1 ea PO BID #60 tab Isosorbide DN [Isordil] 5 mg PO TID #90 tab Primary Care Physician: Ayo Burns [Primary Care Provider] - Please follow up with your Primary Care Physician in: one week Please Follow Up With: Danial Jensen MD When: one week Patient Instructions: Pulmonary Embolism Disposition: Home Minutes spent on discharge:: 40 Patient Condition:: Stable Medical Necessity - Tobacco Use Smoking Status: Former smoker Tobacco Use: Non-smoker Meaningful Use Info Meaningful Use Diagnoses (Choose all that apply): CHF, VTE - CHF CRISTIN/ARB ordered at discharge?: Yes Documented LVEF (%): 35 - VTE Anticoag overlap given w/in hospital stay or rx'd at dc?: No Pt receive overlap for 5 days?: No Reason overlap not ordered, prescribed, or given for 5 days: Treatment Not Indicated Code Visit Inpatient E&M: 92160 Disch Hosp
== END 2018-06-09 12:05 | disposition home or self-care (01) | DRG 286 ==
LOC: ED 15:53 → PCU 17:51
PROVIDERS: Hospitalist; Internal Medicine Cardiovascular Disease; Emergency Provider Emergency Medicine; Family Provider Family Medicine; PCP Family Medicine; Visit Provider Student in an Organized Health Care Education/Training Program
DX: I11.0 Hypertensive heart disease with heart failure (principal); I26.99 Other pulmonary embolism without acute cor pulmonale; I48.91 Unspecified atrial fibrillation; I50.23 Acute on chronic systolic (congestive) heart failure; G89.29 Other chronic pain; M54.9 Dorsalgia, unspecified; R10.32 Left lower quadrant pain; E78.5 Hyperlipidemia, unspecified; I42.9 Cardiomyopathy, unspecified; N40.0 Benign prostatic hyperplasia without lower urinary tract symptoms; R07.89 Other chest pain; R74.8 Abnormal levels of other serum enzymes; Z87.891 Personal history of nicotine dependence; Z79.01 Long term (current) use of anticoagulants; Z95.810 Presence of automatic (implantable) cardiac defibrillator; Z98.1 Arthrodesis status
CPT/HCPCS: 36415; 70450; 71045; 71046; 71275; 80048; 80061; 80162; 81001; 81002; 82140; 82962; 83880; 84484; 85014; 85018; 85025; 85027; 85379; 85610; 85730; 87086; 87088; 93005; 93306; 93458; 93970; 99152; 99153; 99285; J7030; Q9967; A4216; C1769; C1894; J1940; J2405